=== PATIENT | male | born 1950 | race Caucasian/White ===

== ENCOUNTER 2020-01-11 13:39 | Outpatient (REF) | payer SELFPAY ==
[2020-01-13 17:47] LABS: COVID-19 RT-PCR Result Not Detected ((See Note))
== END 2020-01-11 13:59 ==
LOC: LBN 13:39
PROVIDERS: PCP Physician Assistant Medical; Visit Provider Nurse Practitioner Adult Health
DX: Z11.59 Encounter for screening for other viral diseases (principal)
CPT/HCPCS: U0003

== ENCOUNTER 2020-01-18 15:37 | Outpatient (REF) | payer SELFPAY ==
[2020-01-20 15:57] LABS: COVID-19 RT-PCR Result Not Detected ((See Note))
== END 2020-01-18 15:57 ==
LOC: LBN 15:37
PROVIDERS: PCP Physician Assistant Medical; Visit Provider Nurse Practitioner Adult Health
DX: Z11.59 Encounter for screening for other viral diseases (principal)
CPT/HCPCS: U0003

== ENCOUNTER 2020-02-17 14:18 | Outpatient (REF) | payer MEDICARE, SELFPAY ==
[2020-02-18 14:57] LABS: COVID-19 RT-PCR Result Not Detected ((See Note))
== END 2020-02-17 14:38 ==
LOC: LBN 14:18
PROVIDERS: PCP Physician Assistant Medical; Visit Provider Nurse Practitioner Adult Health
DX: Z20.828 Contact with and (suspected) exposure to other viral communicable diseases (principal)
CPT/HCPCS: U0003

== ENCOUNTER 2020-02-24 18:46 | Outpatient (REF) | payer MEDICARE, SELFPAY ==
[2020-02-27 08:52] LABS: SARS-CoV-2 RNA Not Detected (NotDetected); SARS-CoV-2 RNA Source Nasal/Nares
== END 2020-02-24 19:06 ==
LOC: LBN 18:46
PROVIDERS: PCP Physician Assistant Medical; Visit Provider Nurse Practitioner Adult Health
DX: Z11.59 Encounter for screening for other viral diseases (principal)
CPT/HCPCS: U0003

== ENCOUNTER 2020-03-04 15:13 | Outpatient (REF) | payer MEDICARE, SELFPAY | END 2020-03-04 15:33 | LOC: LBN 15:13 | PROVIDERS: PCP Physician Assistant Medical; Visit Provider Nurse Practitioner Adult Health | DX: M86.271 Subacute osteomyelitis, right ankle and foot (principal) | CPT/HCPCS: 87077; 87070; 87186; 87205 ==

== ENCOUNTER 2020-03-07 15:08 | Outpatient (REF) | payer MEDICARE, SELFPAY ==
[2020-03-09 09:05] LABS: COVID-19 RT-PCR UVMMC Result Negative (Negative)
== END 2020-03-07 15:28 ==
LOC: LBN 15:08
PROVIDERS: PCP Physician Assistant Medical; Visit Provider Nurse Practitioner Adult Health
DX: Z11.59 Encounter for screening for other viral diseases (principal)
CPT/HCPCS: U0003

== ENCOUNTER 2020-04-23 11:11 | Observation (INO) | payer OTHER, MEDICARE, SELFPAY ==
[2020-04-23] VITALS (48 sets, daily range): BP systolic 101–127; BP diastolic 44–85; PULSE 61–82; RESP 9–24; TEMP 36.3–37.3; O2SAT 89–97
--- NOTE | 2020-04-23 11:00 | RT.EKG_ITS ---
APPROVED REPORT Exam: Resting ECG Patient Location: E HR:78 bpm ECG Measurements Heart Rate 78 AXIS MD 337 P 40 QRSd 141 QRS -67 QT 418 T 52 QTc 476 Conclusion Sinus rhythm...normal P axis, V-rate 60- 99 Prolonged MD interval...MD >220, V-rate 50- 90 Left atrial enlargement...P, P'>60mS, <-0.15mV V1 Right bundle branch block...QRSd>120, terminal axis(90,270) Inferior infarct, old...Q >35mS, II III aVF
--- NOTE | 2020-04-23 11:41 | ED.GENADUL_ITS ---
Discharge Plan Disposition Patient Disposition: [facility] INPATIENT Condition: Serious Discharge Details Clinical Impression: Chest pain, Anemia Primary Care Provider: Robert Russell ED Provider: Delvis Melvin Home Meds and New Rx's Prescriptions: No Action morphine 30 MG tablet extended release 30 mg PO BID RF: 0 morphine 15 MG tablet 15 mg PO Q4H PRN PRNRF: 0 aspirin [Aspir-81] 81 MG tablet,delayed release (DR/EC) 1 tab PO DAILY RF: 0 omeprazole 20 MG capsule,delayed release(DR/EC) 1 tab PO BID RF: 0 furosemide 40 mg Tablet 40 mg PO DAILY RF: 0 cadexomer iodine 0.9 % Gel 40 g TOPICAL DAILY RF: 0 lovastatin 40 mg Tablet 40 mg PO QPM RF: 0 trazodone 100 mg Tablet 100 mg PO QHS RF: 0 gabapentin 300 mg Capsule 600 mg PO BID RF: 0 gabapentin 300 mg Capsule 300 mg PO .DAILY @ 1400 RF: 0 melatonin 3 mg Capsule 3 mg PO HS PRNRF: 0 acetaminophen 325 mg Tablet 650 mg PO QID PRNRF: 0 morphine 15 mg Capsule 7.5 mg PO Q4H PRN PRNRF: 0 glyburide 5 mg Tablet 5 mg PO BID RF: 0 metformin 1,000 mg Tablet 1,000 mg PO BID RF: 0 nitroglycerin 0.4 mg Tablet, Sublingual 0.4 mg SUBLINGUAL Q5M PRNRF: 0 polyethylene glycol 3350 17 gram/dose Powder 17 g PO DAILY PRNRF: 0 metoprolol tartrate 25 mg Tablet 25 mg PO BID RF: 0 COVID-19 vacc,mRNA(Pfizer)(PF) 30 mcg/0.3 mL Suspension For Reconstitution 0.3 ml IM ONCE RF: 0 Medical Decision Making 1145?69-year-old male with history of hypertension, diabetes, coronary artery disease status post CABG 1 year ago, 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 Patient is high risk for acute coronary syndrome. Screening ECG was reviewed and interpreted by me: Please see report, nondiagnostic, no STEMI. Will send troponin. Given sedentary lifestyle and recent orthopedic procedure, consider pulmonary embolism. Consider also aortic dissection. Plan to obtain CT of the chest. Patient is currently hemodynamically stable and chest pain-free. Patient did already receive aspirin today at rehab facility. 14:06 --initial troponin negative. Second troponin slightly elevated at 0.06 but still in indeterminate range. Patient remains chest pain-free. No chest pain since episode prior to arrival. Plan to trend troponin. I called and spoke with the hospitalist-discussed ED presentation and course, he recommends against heparin infusion at this time and will admit the patient to MedSurg floor. Bridging orders placed as requested. Care transition to Dr. Donis, hospitalist service --Patient does have anemia today with no old for comparison. Patient denies melena or bright red blood per rectum. He does not any knowledge of prior anemia. We will attempt to obtain outside hospital records from [place]. HPI General Mode of arrival: EMS . Date/Time Provider Initiated Documentation: 04/23/20 11:19 . Limitations to Documentation: no limitations . Information obtained by: EMS . HPI Narrative: 69-year-old male with history of diabetes, hypertension, CABG, CVA, residual left-sided weakness, here with chief complaint of chest pain. Pain started this morning around 10 AM and lasted approximately 1 hour. Pain was severe. Pain localized to retrosternal centrally. Patient notes pain came on suddenly after eating. Pain resolved with sublingual nitroglycerin x2. He has no associated shortness of breath. No calf pain. He is sedentary and has had recent orthopedic surgery right lower extremity complicated by graft failure. Related Data Home Medications Medication Instructions Recorded Confirmed aspirin [Aspir 81] 1 tab PO DAILY 06/19/16 04/23/20 morphine 15 mg PO Q4H PRN PRN 06/19/16 04/23/20 morphine 30 mg PO BID 06/19/16 04/23/20 omeprazole 1 tab PO BID 06/19/16 04/23/20 COVID-19 vacc,mRNA(Pfizer)(PF) 0.3 ml IM ONCE 04/23/20 04/23/20 acetaminophen 650 mg PO QID PRN 04/23/20 04/23/20 cadexomer iodine 40 g TOPICAL DAILY 04/23/20 04/23/20 furosemide 40 mg PO DAILY 04/23/20 04/23/20 gabapentin 300 mg PO .DAILY @ 1400 04/23/20 04/23/20 gabapentin 600 mg PO BID 04/23/20 04/23/20 glyburide 5 mg PO BID 04/23/20 04/23/20 lovastatin 40 mg PO QPM 04/23/20 04/23/20 melatonin 3 mg PO HS PRN 04/23/20 04/23/20 metformin 1,000 mg PO BID 04/23/20 04/23/20 metoprolol tartrate 25 mg PO BID 04/23/20 04/23/20 morphine 7.5 mg PO Q4H PRN PRN 04/23/20 04/23/20 nitroglycerin 0.4 mg SUBLINGUAL Q5M PRN 04/23/20 04/23/20 polyethylene glycol 3350 17 g PO DAILY PRN 04/23/20 04/23/20 trazodone 100 mg PO QHS 04/23/20 04/23/20 Allergies Allergy/AdvReac Type Severity Reaction Status Date / Time amitriptyline Allergy Unknown Unverified 04/23/20 11:14 simvastatin Allergy Unknown Unverified 04/23/20 11:14 General Stated Complaint: Chest Pain MARILYN: 2 Review of Systems All systems reviewed & are unremarkable except as noted in HPI and below Constitutional Constitutional: Denies fever(s) Cardiovascular Cardiovascular: Reports as per HPI Respiratory Respiratory: Reports as per HPI Gastrointestinal Gastrointestinal: Denies melena and Denies hematochezia [facility] Medical History (Updated 04/23/20 @ 14:53 by Delvis Melvin MD) Coronary artery disease CVA (cerebral vascular accident) Diabetes Hypertension Surgical History (Updated 04/23/20 @ 11:43 by Delvis Melvin MD) Hx of CABG Social History Smoking/Tobacco Use Status: Former Tobacco Use Smoking risk assessment performed?: Yes Alcohol Intake: former Substance use type: does not use Details: smoked in the no alcohol since 1989ish Do you feel safe at home: Yes Do you feel safe in your relationship?: Yes Exam Const General: cooperative and no acute distress HENMT Mouth: moist mucous membranes Eyes Conjunctivae: normal conjunctivae Sclera: normal sclerae Neck Neck: trachea midline and supple Resp Auscultation: clear to auscultation bilaterally, no rales, no rhonchi and no wheezes Cardio Rate: regular rate and not tachycardic Rhythm: regular rhythm Other: Heart sounds distant GI Palpation: soft, not firm, no guarding, no masses, not rigid and nontender Skin General skin exam: no rashes or lesions noted Neuro General: patient alert, patient awake, patient oriented x3 and tone normal Cognition: normal cognition Motor: other (4/5 strength left upper and left lower extremity compared to 5/5 rt) Sensory Exam: no sensory deficits noted Other: Left facial droop Extrem General: no calf tenderness and no edema Other: Distal right lower extremity boot intact Psych Appearance: grossly normal Mental Status: mental status grossly normal Course Vital Signs Vital signs: Vital Signs Temperature 36.6 C 04/23/20 11:10 Pulse 78 04/23/20 11:10 Respiratory Rate 18 04/23/20 11:10 Blood Pressure 114/58 L 04/23/20 11:10 Pulse Oximetry 94 04/23/20 11:10 Temperature 36.6 C 04/23/20 11:10 Temperature Source Skin 04/23/20 11:10 Pulse 78 04/23/20 11:22 Pulse 74 04/23/20 11:30 Respiratory Rate 13 04/23/20 11:36 Respiratory Effort Non-Labored 04/23/20 11:36 Respiratory Depth Normal 04/23/20 11:36 Respiratory Pattern Normal 04/23/20 11:36 Blood Pressure 114/58 L 04/23/20 11:22 Blood Pressure Mean 70 04/23/20 11:22 Blood Pressure Position Supine 04/23/20 11:10 Pulse Oximetry 94 04/23/20 11:30 Oxygen Delivery Method Room Air 04/23/20 11:10 Oxygen Flow Rate 0 04/23/20 11:10 Pain Level 0 04/23/20 11:10
[2020-04-23 11:49] LABS: Abs Immature Grans 0.01 10^3/uL (0.0-0.06); Absolute Basophil Count 0.01 10^3/uL (0.0-0.2); Absolute Eosinophil Count 0.08 10^3/uL (0.0-0.7); Absolute Lymphocyte Count 0.71 10^3/uL (1.2-3.4); Absolute Neutrophil Count 3.67 10^3/uL (1.2-6.7); Basophils % 0.2; Eosinophils % 1.7; HCT 30.1 % (40.0-50.0); HGB 8.6 g/dL (13.5-17.5); Immature Grans % 0.2; Lymphocytes % 14.9; MCHC 28.6 % (32.0-36.0); MCV 73.6 fL (80-95); MPV 9.8 fL (8.0-11.0); Monocytes % 6.3; Neutrophils % 76.7; Nucleated RBC 0 %; Platelet Count 123 10^3/uL (130-400); RBC 4.09 10^6/uL (4.36-5.78); RDW 17.9 % (11.8-14.1); RDW-SD 46.9 fL; WBC 4.78 10^3/uL (4.4-10.8)
[2020-04-23 12:03] LABS: Anisocytosis 1+; Diff Comment RBC Morph Reviewed; Hypochromasia 2+; INR 1.2 (0.9-1.1); Microcytosis 3+; PTT Activated 24.9 sec (21.0-27.5); Polychromasia Present; Prothrombin Time 11.6 sec (9.3-11.0)
[2020-04-23 12:05] LABS: ALT 25 U/L (16-63); AST 31 U/L (15-37); Alkaline Phosphatase 183 U/L (46-116); Anion Gap 9.3 mmol/L (3-11); BUN 28 mg/dL (7-18); Bilirubin, Total 0.6 mg/dL (0.2-1.0); CO2 27.7 mmol/L (21.0-32.0); CREATININE 1.22 mg/dL (0.70-1.30); Chloride 101 mmol/L (98-107); Glucose 228 mg/dL (74-106); Potassium 4.6 mmol/L (3.5-5.1); Sodium 138 mmol/L (136-145); Total Protein 7.4 g/dL (6.4-8.2); Troponin I < 0.05 ng/mL (<0.06)
--- NOTE | 2020-04-23 12:53 | DI.CT_ITS ---
EXAM: CT CHEST PE CTA CLINICAL HISTORY: retrosternal chest pain x 1hr, improved with nitro. TECHNIQUE: Imaging Protocol: CT angiography of the chest was performed using pulmonary embolus chas col. Multi planar reconstructions were performed. CONTRAST MATERIAL: Intravenous: Omnipaque 350 Contrast volume: 83 cc COMPARISON: No previous exams available for comparison FINDINGS: CHEST: There are sternotomy wires and elevated right hemidiaphragm noted. PULMONARY ARTERIES: There are no intraluminal filling defects to suggest acute pulmonary emboli. LUNGS: Mild increased markings in the right lung base are noted above the significantly elevated righ t hemidiaphragm. Also mild benign-appearing pleural based markings in the posterior basal segment of the left lower lobe. No associated pleural effusion. No pleural effusions on either side MEDIASTINUM: There is no hilar nor mediastinal adenopathy. Visualized thyroid unremarkable. CARDIAC: There is sternotomy wires. There is cardiomegaly. No pericardial effusion. No shift of th e interventricular septum.Caliber of the thoracic aorta is within normal limits. No evidence of aorti c dissection PARTIALLY VISUALIZED UPPERMOST ABDOMEN: No obvious findings OSSEOUS: There is ligamentous calcification throughout the visualized thoracic spinal column as well as in the cervical spine kyphotic deflection of the thoracis over thoracocervical junction. Correlat ion with any history of ankylosing spondylitis is recommended.. IMPRESSION: 1. No evidence of acute pulmonary emboli. No evidence of pulmonary infarction.No pleural effusions. Mild increased markings in the posterior basal segment of the left lower lobe. 2. Significantly elevated right hemidiaphragm. 3. Cardiomegaly. No pericardial effusion. No aortic dissection. No shift of the interventricular s eptum. RADIATION DOSE DELIVERED: LINK-TO-SR Total DLP DATA REPOSITORY: All CT scans at this facility are submitted to the National Radiology Data Registry (NRDR) Dose Index Registry (DIR) with the [employer] (A[employer]). RADIATION OPTIMIZATION: All CT scans at this facility use at least one of these dose optimization te chniques: automated exposure control; mA and/or kV adjustment per patient size (includes targeted exa ms where dose is matched to clinical indication); or iterative reconstruction.
[2020-04-23] MEDS: Normal Saline - Diluent 50 ML VIAL IV (12:58)
[2020-04-23] MEDS: Omnipaque 350 MG/ML 100 ML BTL 83 ML IJ (13:00)
[2020-04-23 13:54] LABS: Troponin I 0.06 ng/mL (<0.06)
[2020-04-23 15:53] LABS: Troponin I 0.09 ng/mL (<0.06)
[2020-04-23] MEDS: nitroGLYcerin 2% 1 INCH/1 GM PKT 0.5 GM TP ×2 (16:22→21:28)
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
--- NOTE | 2020-04-23 16:45 | RT.EKG_ITS ---
APPROVED REPORT Exam: Resting ECG Patient Location: I HR:68 bpm ECG Measurements Heart Rate 68 AXIS DE 334 P 24 QRSd 139 QRS -57 QT 439 T 40 QTc 469 Conclusion Sinus rhythm...normal P axis, V-rate 60- 99 Prolonged DE interval...DE >220, V-rate 50- 90 Probable left atrial enlargement...P >50mS, <-0.10mV V1 Right bundle branch block...QRSd>120, terminal axis(90,270) Inferior infarct, old...Q >35mS, II III aVF
--- NOTE | 2020-04-23 17:00 | RT.EKG_ITS ---
APPROVED REPORT Exam: Resting ECG Patient Location: I HR:86 bpm ECG Measurements Heart Rate 86 AXIS WV 197 P 78 QRSd 101 QRS -6 QT 403 T 47 QTc 482 Conclusion Sinus rhythm...normal P axis, V-rate 60- 99 Ventricular premature complex...V complex w/ short R-R interval
[2020-04-23 17:20] LABS: NT-proBNP 790 pg/mL (<300)
[2020-04-23] MEDS: Clopidogrel 300 MG TAB PO (17:57)
--- NOTE | 2020-04-23 18:23 | WOUNDCONS ---
- If Service Date Differs Date of service: 04/23/20 Time of Service: 18:24 Wound Initial Evaluation Narrative: Pt seen at bedside, agreeable to wound consult, consent obtained for photographs. Pt has large medical Hx significant for ACS, CABG, Diabetes, HTN, spine osteomyleitis in 2018 and chronic back pain. Right lateral ankle wound being followed and managed by the [facility] wound clinic, Dr. Bertha Casanova. Pt seen yesterday 04/22/2020 via tele health by the [place] [facility]ound team; [facility]. Since wound has complicated Hx including partial resection of fibula, wound vac, debridments, and placements of restrata grafts w/failure it is this scribes recommendation to continue to follow the [facility] treatment plan at this time. Documentation shows improvement of wound recently. Right 5th toe oozing bloody discharge with loose toenail. [facility]&R nursing staff reports current orders are cleanse to with betadine, apply cadexomer iodine to toe with dry sterile dressing as a covering. Change daily. Pt reports pain to toe when touched, denies pain at rest. Due to loose toenail recommend podiatry consult @ this time to assess if nail needs to be removed or left in place. - Wound Right Lateral Ankle Wound Type: Other (original origin of wound unknown to this scribe) Wound General Appearance: Healing Well Wound Bed Greatest Portion: Red (Granulation) Wound Length: 5.3 cm Wound Width: 3.1 cm Wound Depth: 0.1 cm Wound Drainage Amount: Minimal Wound Drainage Odor: None/Absent Wound Drainage Description: Sero Sanguineous - Circulation, Sensation, Motion Edema Degree: Trace Peripheral Pulse Strength: Weak Capillary Refill: Less than 3 seconds Skin Temperature: Warm Skin Color: Normal - ERICH Comment:: not obtained @ this time d/t wound location - Pain Pain Level: 2 Pain Scale Used: Adult - Recomendation Recomendation:: Recommendations: Right Lateral Ankle Wound- cleanse wound with NS, apply medi honey to wound, cover with adaptic, cover with 4x4 gauze, wrap with kerlix and MAGEN, tape in place. Change daily and PRN. Right 5th toe- cleanse with NS. Apply cadexomer iodine to toe, cover with dry sterile dressing. Change daily and PRN. Recommend podiatry consult to assess if 5th toenail needs to be removed.
[2020-04-23] MEDS: Metoprolol 25 MG TAB PO (20:03)
[2020-04-23] MEDS: Gabapentin 300 MG CAP 600 MG PO (20:03)
[2020-04-23] MEDS: Lovastatin 40 MG TAB PO (20:03)
[2020-04-23] MEDS: Melatonin 3 MG TAB PO (20:03)
[2020-04-23] MEDS: Omeprazole 20 MG CAPCR PO (20:04)
[2020-04-23 20:17] LABS: Troponin I 0.11 ng/mL (<0.06)
[2020-04-23] MEDS: traZODone 100 MG TAB PO (21:27)
[2020-04-23] MEDS: Insulin Glargine 300 UNITS/3 ML PEN 10 UNITS SC (21:29)
[2020-04-23 22:36] LABS: Troponin I 0.11 ng/mL (<0.06)
[2020-04-24 03:42] VITALS: BP 101/54; PULSE 66; RESP 18; TEMP 36.6; O2SAT 96
[2020-04-24 07:03] LABS: Absolute Basophil Count 0.02 10^3/uL (0.0-0.2); Absolute Eosinophil Count 0.09 10^3/uL (0.0-0.7); Absolute Lymphocyte Count 1.03 10^3/uL (1.2-3.4); Absolute Neutrophil Count 2.45 10^3/uL (1.2-6.7); Basophils % 0.5; Eosinophils % 2.3; HCT 27.6 % (40.0-50.0); Lymphocytes % 25.8; MCH 20.6 pg (27.0-33.0); MCV 71.1 fL (80-95); MPV 10.1 fL (8.0-11.0); Neutrophils % 61.4; Nucleated RBC 0 %; Platelet Count 118 10^3/uL (130-400); RBC 3.88 10^6/uL (4.36-5.78); RDW 17.6 % (11.8-14.1); RDW-SD 44.6 fL; WBC 3.99 10^3/uL (4.4-10.8)
[2020-04-24 07:19] LABS: Anion Gap 6.3 mmol/L (3-11); BUN 30 mg/dL (7-18); CO2 31.7 mmol/L (21.0-32.0); CREATININE 0.98 mg/dL (0.70-1.30); Chloride 102 mmol/L (98-107); Glucose 87 mg/dL (74-106); Iron 20 ug/dL (65-175); Potassium 3.9 mmol/L (3.5-5.1); Sodium 140 mmol/L (136-145); Total Iron Binding Capacity 422 ug/dL (250-450); Transferrin Sat 5 % (20-55)
[2020-04-24 07:22] LABS: Troponin I 0.08 ng/mL (<0.06)
[2020-04-24 07:26] LABS: Ferritin 21 ng/mL (26-388)
[2020-04-24 07:39] VITALS: BP 113/64; PULSE 62; RESP 19; TEMP 36; O2SAT 95
[2020-04-24] MEDS: Omeprazole 20 MG CAPCR PO (07:51)
[2020-04-24] MEDS: Furosemide 40 MG TAB PO (07:51)
[2020-04-24] MEDS: Aspirin E.C. 81 MG TABEC PO (07:51)
[2020-04-24] MEDS: Clopidogrel 75 MG TAB PO (07:51)
[2020-04-24] MEDS: Metoprolol 25 MG TAB PO (07:51)
[2020-04-24] MEDS: Gabapentin 300 MG CAP 600 MG PO (07:51)
[2020-04-24] MEDS: Insulin Aspart 300 UNITS/3 ML PEN SC ×3 (08:04→12:03)
[2020-04-24 08:37] LABS: COVID-19 RT-PCR UVMMC Result Negative (Negative)
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
[2020-04-24] MEDS: Isosorbide Mononitrate 30 MG TABCR PO (10:03)
[2020-04-24 10:29] LABS: Calculated LDL 46 mg/dL (<100); Cholesterol 102 mg/dL (<200); HDL Cholesterol 33 mg/dL (40-60); Triglyceride 119 mg/dL (<150)
[2020-04-24 10:54] VITALS: BP 101/56; PULSE 62; RESP 19; TEMP 36.7; O2SAT 96
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
--- NOTE | 2020-04-24 13:19 | PDOC.CMDIS ---
LACE Index Scoring Tool - Questions: Length of Stay (in days): 1 Acuity (Admit via E.D.?): Yes Comorbidities: Cerebrovascular Disease, Diabetes w/o Complication, Congestive Heart Failure E.D. Visits: 1 - Answers: Total Score: 10 Risk of Readmission: High Risk Care Management Discharge Reason for Hospitalization: Chest pain. Discharge Plan: Osmar is discharged to [facility]. 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 He is being driven to [facility] by [facility] wheelchair van coordinated by CM. Patient/Family Education Needs: Discharge instructions, limitations, follow up plan of care, including Ask Me Three and self management. Services Needed at Discharge: Prison Facility, Transportation ([facility] wheelchair van)
== END 2020-04-24 13:31 | disposition skilled nursing facility (03) ==
LOC: ER 14:30 → MS 15:36
PROVIDERS: Family Medicine; Admitting Provider Internal Medicine; Emergency Provider Student in an Organized Health Care Education/Training Program; PCP Physician Assistant Medical; Visit Provider Internal Medicine
DX: I25.118 Atherosclerotic heart disease of native coronary artery with other forms of angina pectoris (principal); I50.30 Unspecified diastolic (congestive) heart failure; I11.0 Hypertensive heart disease with heart failure; I25.2 Old myocardial infarction; Z95.1 Presence of aortocoronary bypass graft; Z86.711 Personal history of pulmonary embolism; I69.354 Hemiplegia and hemiparesis following cerebral infarction affecting left non-dominant side; L97.319 Non-pressure chronic ulcer of right ankle with unspecified severity; E78.5 Hyperlipidemia, unspecified; E66.9 Obesity, unspecified; I45.2 Bifascicular block; G89.29 Other chronic pain; M54.9 Dorsalgia, unspecified; D50.9 Iron deficiency anemia, unspecified; R91.1 Solitary pulmonary nodule; Q21.1 Atrial septal defect
CPT/HCPCS: 36415; 71275; 80048; 80053; 80061; 87081; 93005; 99220; 99239; 99285; U0003; 82728; 83540; 83550; 83880; 84484; 85025; 85610; 85730; 93010; 99217; G0378; J3490

== ENCOUNTER 2020-04-28 18:27 | Outpatient (REF) | payer MEDICARE, SELFPAY ==
[2020-04-29 16:37] LABS: COVID-19 RT-PCR Result Not Detected ((See Note))
== END 2020-04-28 18:47 ==
LOC: LBN 18:27
PROVIDERS: PCP Physician Assistant Medical; Visit Provider Nurse Practitioner Adult Health
DX: Z11.59 Encounter for screening for other viral diseases (principal)
CPT/HCPCS: U0003

== ENCOUNTER 2020-05-03 16:11 | Outpatient (REF) | payer MEDICARE, SELFPAY ==
[2020-05-05 15:27] LABS: COVID-19 RT-PCR Result Not Detected ((See Note))
== END 2020-05-03 16:31 ==
LOC: LBN 16:11
PROVIDERS: PCP Physician Assistant Medical; Visit Provider Nurse Practitioner Adult Health
DX: Z11.59 Encounter for screening for other viral diseases (principal)
CPT/HCPCS: U0003

== ENCOUNTER 2020-05-18 20:04 | Outpatient (REF) | payer MEDICARE, SELFPAY ==
[2020-05-18 20:56] LABS: Abs Immature Grans 0.01 10^3/uL (0.0-0.06); Absolute Basophil Count 0.02 10^3/uL (0.0-0.2); Absolute Eosinophil Count 0.14 10^3/uL (0.0-0.7); Absolute Lymphocyte Count 1.01 10^3/uL (1.2-3.4); Absolute Monocyte Count 0.54 10^3/uL (0.1-0.8); Absolute Neutrophil Count 3.06 10^3/uL (1.2-6.7); Basophils % 0.4; Eosinophils % 2.9; HCT 23.7 % (40.0-50.0); Immature Grans % 0.2; Lymphocytes % 21.1; MCH 20.5 pg (27.0-33.0); MCHC 29.1 % (32.0-36.0); MCV 70.5 fL (80-95); MPV 10.8 fL (8.0-11.0); Monocytes % 11.3; Neutrophils % 64.1; Nucleated RBC 0 %; Platelet Count 111 10^3/uL (130-400); RBC 3.36 10^6/uL (4.36-5.78); RDW 16.8 % (11.8-14.1); RDW-SD 42.9 fL; WBC 4.78 10^3/uL (4.4-10.8)
[2020-05-18 21:05] LABS: Anion Gap 6.9 mmol/L (3-11); BUN 30 mg/dL (7-18); CO2 27.1 mmol/L (21.0-32.0); CREATININE 1.21 mg/dL (0.70-1.30); Calcium 8.6 mg/dL (8.5-10.1); Chloride 99 mmol/L (98-107); Estimated GFR 59.46 (mL/min/1.73m2); Glucose 159 mg/dL (74-106); Potassium 4.5 mmol/L (3.5-5.1); Sodium 133 mmol/L (136-145)
[2020-05-18 21:30] LABS: HGB 6.9 g/dL (13.5-17.5)
[2020-05-18 21:31] LABS: Diff Comment RBC Morph Reviewed; Hypochromasia 1+; Microcytosis 3+
== END 2020-05-18 20:24 ==
LOC: LBN 20:04
PROVIDERS: PCP Physician Assistant Medical; Visit Provider Nurse Practitioner Adult Health
DX: E11.621 Type 2 diabetes mellitus with foot ulcer (principal); M86.271 Subacute osteomyelitis, right ankle and foot; R27.8 Other lack of coordination
CPT/HCPCS: 80048; 85025

== ENCOUNTER 2020-05-19 18:32 | Emergency (ER) | payer OTHER, MEDICARE, SELFPAY ==
[2020-05-19] VITALS (12 sets, daily range): BP systolic 114–134; BP diastolic 52–64; PULSE 89–92; RESP 16–20; TEMP 36.9; O2SAT 90–96
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
[2020-05-19 19:29] LABS: Abs Immature Grans 0.01 10^3/uL (0.0-0.06); Absolute Basophil Count 0.03 10^3/uL (0.0-0.2); Absolute Eosinophil Count 0.12 10^3/uL (0.0-0.7); Absolute Lymphocyte Count 1.03 10^3/uL (1.2-3.4); Absolute Monocyte Count 0.56 10^3/uL (0.1-0.8); Absolute Neutrophil Count 3.48 10^3/uL (1.2-6.7); Basophils % 0.6; Eosinophils % 2.3; HCT 26.9 % (40.0-50.0); HGB 7.6 g/dL (13.5-17.5); Immature Grans % 0.2; Lymphocytes % 19.7; MCH 19.9 pg (27.0-33.0); MCHC 28.3 % (32.0-36.0); MCV 70.4 fL (80-95); MPV 10.5 fL (8.0-11.0); Monocytes % 10.7; Neutrophils % 66.5; Nucleated RBC 0 %; Platelet Count 138 10^3/uL (130-400); RBC 3.82 10^6/uL (4.36-5.78); RDW 16.7 % (11.8-14.1); RDW-SD 42.7 fL; WBC 5.23 10^3/uL (4.4-10.8)
[2020-05-19 19:44] LABS: Anion Gap 7.9 mmol/L (3-11); BUN 31 mg/dL (7-18); CO2 27.1 mmol/L (21.0-32.0); CREATININE 1.31 mg/dL (0.70-1.30); Chloride 97 mmol/L (98-107); Estimated GFR 54.25 (mL/min/1.73m2); Glucose 164 mg/dL (74-106); Potassium 4.4 mmol/L (3.5-5.1); Sodium 132 mmol/L (136-145)
[2020-05-19 20:11] LABS: Hypochromasia 1+
[2020-05-19 20:12] LABS: Basophilic Stippling Present; Microcytosis 1+
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
== END 2020-05-19 20:38 ==
PROVIDERS: Emergency Provider Nurse Practitioner Acute Care; PCP Physician Assistant Medical
DX: D50.8 Other iron deficiency anemias (principal); E11.9 Type 2 diabetes mellitus without complications; Z79.84 Long term (current) use of oral hypoglycemic drugs; I10 Essential (primary) hypertension
CPT/HCPCS: 36415; 80048; 86850; 86900; 86901; 99283; 85025

== ENCOUNTER 2020-05-24 17:28 | Outpatient (REF) | payer MEDICARE, SELFPAY ==
[2020-05-26 14:48] LABS: COVID-19 RT-PCR Result Not Detected ((See Note))
== END 2020-05-24 17:48 ==
LOC: LBN 17:28
PROVIDERS: PCP Physician Assistant Medical; Visit Provider Nurse Practitioner Adult Health
DX: Z11.52 Encounter for screening for COVID-19 (principal)
CPT/HCPCS: U0003

== ENCOUNTER 2020-05-29 16:10 | Outpatient (REF) | payer MEDICARE, SELFPAY | END 2020-05-29 16:11 | disposition home or self-care (01) | LOC: LBN 16:10 | PROVIDERS: PCP Physician Assistant Medical; Visit Provider Nurse Practitioner Adult Health | DX: Z20.822 Contact with and (suspected) exposure to COVID-19 (principal) | CPT/HCPCS: U0003 ==

== ENCOUNTER 2020-06-18 11:10 | Inpatient (IN) | payer MEDICARE, OTHER, SELFPAY ==
[2020-06-18] VITALS (137 sets, daily range): BP systolic 88–119; BP diastolic 43–66; PULSE 65–88; RESP 1–30; TEMP 36.3–36.9; O2SAT 83–100
--- NOTE | 2020-06-18 11:15 | RT.EKG_ITS ---
APPROVED REPORT Exam: Resting ECG Patient Location: E HR:83 bpm ECG Measurements Heart Rate 83 AXIS NV 235 P 233 QRSd 137 QRS -86 QT 439 T 57 QTc 516 Conclusion Sinus or ectopic atrial rhythm...P axis (-45,135) Prolonged NV interval...NV >220, V-rate 50- 90 Left atrial enlargement...P, P'>60mS, <-0.15mV V1 Right bundle branch block...QRSd>120, terminal axis(90,270) Inferior infarct, old...Q >35mS, II III aVF
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
[2020-06-18 12:28] LABS: Lactate 3.5 mmol/L (0.6-1.4)
[2020-06-18 12:49] LABS: Abs Immature Grans 0.02 10^3/uL (0.0-0.06); Absolute Basophil Count 0.02 10^3/uL (0.0-0.2); Absolute Eosinophil Count 0.05 10^3/uL (0.0-0.7); Absolute Monocyte Count 0.35 10^3/uL (0.1-0.8); Absolute Neutrophil Count 3.43 10^3/uL (1.2-6.7); Basophils % 0.4; Eosinophils % 1.1; HCT 23.6 % (40.0-50.0); Immature Grans % 0.4; Lymphocytes % 17.1; MCH 18.4 pg (27.0-33.0); MCV 65.7 fL (80-95); MPV 10.4 fL (8.0-11.0); Monocytes % 7.5; Neutrophils % 73.5; Nucleated RBC 0 %; Platelet Count 123 10^3/uL (130-400); RBC 3.59 10^6/uL (4.36-5.78); RDW 16.6 % (11.8-14.1); RDW-SD 38.6 fL; WBC 4.67 10^3/uL (4.4-10.8)
[2020-06-18] MEDS: Lactated Ringers 1,000 ML 125 ML IV (12:50)
[2020-06-18 12:52] LABS: HGB 6.6 g/dL (13.5-17.5)
[2020-06-18 12:54] LABS: ALT 18 U/L (16-63); AST 34 U/L (15-37); Albumin 3.2 g/dL (3.4-5.0); Alkaline Phosphatase 144 U/L (46-116); Anion Gap 9.9 mmol/L (3-11); BUN 39 mg/dL (7-18); Bilirubin, Total 0.4 mg/dL (0.2-1.0); CO2 28.1 mmol/L (21.0-32.0); Calcium 8.8 mg/dL (8.5-10.1); Chloride 99 mmol/L (98-107); Glucose 238 mg/dL (74-106); Lipase 102 U/L (73-393); Potassium 4.3 mmol/L (3.5-5.1); Sodium 137 mmol/L (136-145); Total Protein 7.7 g/dL (6.4-8.2)
[2020-06-18 13:05] LABS: Bilirubin Negative (Negative); Blood Small (Negative); Clarity Clear (Clear); Glucose Negative (Negative); Ketones Negative (Negative); Leukocyte Esterase Negative (Negative); Nitrite Negative (Negative); Urobilinogen 0.2 EU/dL (Up TO 0.2); pH 6.5 (5-8)
[2020-06-18 13:13] LABS: Diff Comment Diff Reviewed
[2020-06-18 13:14] LABS: Hypochromasia 3+; Microcytosis 2+; Poikilocytes 2+; Polychromasia Present
[2020-06-18 13:18] LABS: Bacteria Rare HPF (Negative); C & S Indicated? No; Casts Negative LPF (Negative); Crystals Negative HPF (Negative); Epithelial Cells Rare HPF (Negative); Mucus Negative (Negative); WBC 0-2 HPF (0-5)
--- NOTE | 2020-06-18 15:41 | DI.CT_ITS ---
EXAM: CT ABDOMEN PELVIS W CLINICAL HISTORY: diffuse abdominal pain 3 days. TECHNIQUE: Imaging Protocol: Axial computed tomography images with coronal and sagittal reformatted images were created and reviewed CONTRAST MATERIAL: Intravenous: Omnipaque 100cc Oral: None COMPARISON: CT CT CHEST PE CTA from 04/23/2020 FINDINGS: VISUALIZED LUNG BASES: Small noncalcified nodule on the right side at the junction of the right upper and right middle lobes noted which probably a pseudo nodule at the pleural reflection measuring 6 mi llimeters. There is mild infiltrate again noted in the right lung base posterior basal segment right lower lobe in this patient who as an elevated right hemidiaphragm, also unchanged. Unchanged benign -appearing increased markings are noted in the posterior basal segment of the left lower lobe. No pl eural effusions on either side ABDOMEN: Elevated right hemidiaphragm again noted. Sternotomy wires. LIVER: Hepatic steatosis again noted hand there appears to be recanalization of the umbilical vein. No ominous focal hepatic lesions evident GALLBLADDER/BILIARY: The gallbladder surgically absent. CBD diameter upper normal. PANCREAS: The pancreas is atrophic. However, there is a cystic mass in the pancreatic body measuring 1.3 by 0.9 cm. Either cyst or pancreatic cystic neoplasm. SPLEEN: Spleen size is upper normal. No intrasplenic lesions. Splenic and portal veins are patent. ADRENALS: There are no significant adrenal masses. KIDNEYS:No cysts evident. No solid renal masses. No calculi nor hydronephrosis.. ABDOMINAL AORTA: Abdominal aorta is not enlarged. LYMPH NODES:There is no retroperitineal nor paraaortic adenopathy. Some streaking in the central mes entery is noted. ABDOMINAL WALL/GI: No evidence of significant anterior abdominal wall hernia. No bowel obstruction. PELVIS: GI: No evidence of appendicitis.No evidence of sigmoid diverticulitis. LYMPH NODES: There is no intrapelvic nor inguinal adenopathy. REPRODUCTIVE: Prostate not enlarged URINARY BLADDER: Some thickening of the urinary bladder wall is noted. There is also a small Hutch d iverticulum on the right side of the urinary bladder which measures 1.7 x 1.6 cm. OSSEOUS: No significant osseous lesions. No fractures evident. IMPRESSION: 1. Elevated right hemidiaphragm again noted, as well as some increased markings in the lung bases, un changed from the previous study listed above. 2. Gallbladder is again noted be surgically absent. CBD diameter is upper normal. 3. There is a 13 x 9 millimeters cystic mass in the pancreatic body which may represent an intra panc reatic cystic neoplasm. Requires appropriate follow-up. 4. There is nonspecific streaking in the central mesentery as well as below the pancreatic tail. Pos sible element of pancreatitis. Correlation with appropriate blood work recommended. Right-sided Hutch diverticulum in the bladder measuring 17 x 16 millimeters. Also mild thickening of the bladder wall. RADIATION DOSE DELIVERED: 1,715.78mGy.cm Total DLP DATA REPOSITORY: All CT scans at this facility are submitted to the National Radiology Data Registry (NRDR) Dose Index Registry (DIR) with the [employer] [place] [employer] ([employer]). RADIATION OPTIMIZATION: All CT scans at this facility use at least one of these dose optimization te chniques: automated exposure control; mA and/or kV adjustment per patient size (includes targeted exa ms where dose is matched to clinical indication); or iterative reconstruction.
[2020-06-18] MEDS: Omnipaque 350 MG/ML 100 ML BTL IJ (15:46)
[2020-06-18] MEDS: Lactated Ringers 250 ML 1000 ML IV (16:13)
[2020-06-18 16:52] LABS: Lactate 4.8 mmol/L (0.6-1.4)
[2020-06-18] MEDS: Pantoprazole 40 MG VIAL 80 MG IVP (17:40)
[2020-06-18 18:01] LABS: HCT 23.3 % (40.0-50.0); MCH 18.6 pg (27.0-33.0); MCHC 27.9 % (32.0-36.0); MCV 66.6 fL (80-95); MPV 10.5 fL (8.0-11.0); Platelet Count 129 10^3/uL (130-400); RDW 16.5 % (11.8-14.1); RDW-SD 39.3 fL; WBC 5.23 10^3/uL (4.4-10.8)
[2020-06-18 18:10] LABS: HGB 6.5 g/dL (13.5-17.5)
[2020-06-18 18:25] LABS: INR 1.2 (0.9-1.1); Prothrombin Time 12.4 sec (9.3-11.0)
[2020-06-18 19:17] LABS: Troponin I 0.17 ng/mL (<0.06)
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
[2020-06-18 19:33] LABS: Iron 13 ug/dL (65-175); Total Iron Binding Capacity 499 ug/dL (250-450); Transferrin Sat 3 % (20-55)
[2020-06-18] MEDS: Normal Saline 1,000 ML 100 ML IV (19:39)
[2020-06-18] MEDS: PANTOPRAZOLE 80 MG in Normal Saline 100 ML 10 MG IV (19:39)
[2020-06-18 19:50] LABS: Folate 7.8 ng/mL (8.6-20.0); TSH 3.25 uIU/mL (0.36-3.74)
[2020-06-18 20:37] LABS: Anion Gap 8.7 mmol/L (3-11); BUN 30 mg/dL (7-18); CO2 25.3 mmol/L (21.0-32.0); CREATININE 0.8 mg/dL (0.70-1.30); Calcium 7.2 mg/dL (8.5-10.1); Chloride 109 mmol/L (98-107); Glucose 64 mg/dL (74-106); Sodium 143 mmol/L (136-145)
[2020-06-18 20:38] LABS: Lactate 2.8 mmol/L (0.6-1.4)
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
[2020-06-18 20:49] LABS: Troponin I 0.14 ng/mL (<0.06)
[2020-06-18 21:14] LABS: COVID-19 PCR Negative (Negative)
[2020-06-18 21:14] LABS: C-Reactive Protein 0.11 mg/dL (0.0-0.3)
[2020-06-18] MEDS: Normal Saline Flush 10 ML SYR IVP (21:42)
[2020-06-18 21:45] LABS: NT-proBNP 1137 pg/mL (<300)
[2020-06-18 21:57] LABS: Vitamin B12 463 pg/mL (193-986)
[2020-06-18] MEDS: Lidocaine 2% Jelly 6 ML SYR (21:57)
[2020-06-18] MEDS: traZODone 50 MG TAB 100 MG PO (22:21)
[2020-06-18] MEDS: Gabapentin 300 MG CAP 600 MG PO (22:21)
[2020-06-18] MEDS: Melatonin 3 MG TAB PO (22:21)
[2020-06-18] MEDS: Folic Acid 1 MG TAB PO (23:16)
[2020-06-18] MEDS: POTASSIUM CHLORIDE 20 MEQ/100 ML BAG 50 MEQ IVPB (23:16)
[2020-06-19] VITALS (204 sets, daily range): BP systolic 84–135; BP diastolic 29–66; PULSE 65–96; RESP 6–42; TEMP 36.1–36.7; O2SAT 84–100
--- NOTE | 2020-06-19 | DI.CT_ITS ---
EXAM: CT CHEST PE CTA CLINICAL HISTORY: Questionable pulmonary embolism on CT abd/pelvis. TECHNIQUE: Imaging Protocol: Axial CT angiography was performed with multi-slice acquisition and mu lti-planar and/or 3D reconstructions. CONTRAST MATERIAL: Intravenous: Omnipaque 350 Contrast volume:100 mL COMPARISON: CT CT ABDOMEN PELVIS W from 06/18/2020 FINDINGS: Tracheobronchial tree: Patent where visualized. Pulmonary parenchyma: There are infiltrates seen in the lower lobes bilaterally. This may be due to atelectasis or scarring. There is elevation of the right hemidiaphragm. This is unchanged. No arch itectural distortion. Pulmonary Arteries: There is a filling defect in a segmental branch of the pulmonary arteries to the left lower lobe. Mediastinum and Vivienne: No dominant adenopathy or fluid collection. Visualized thyroid gland: Unremarkable. Pleura: No effusion or pneumothorax. Heart: Mild cardiomegaly. Marked coronary artery calcification and/or coronary artery stents. No pe ricardial effusion. No evidence of right heart strain. Aorta: Thoracic aorta non-dilated. Atherosclerosis. No evidence of dissection. Upper abdomen: Status post cholecystectomy. Soft tissues: Bilateral gynecomastia. Bones: Sternal wires are in place. 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 IMPRESSION: 1. Pulmonary embolism in a segmental branch of the left lower lobe. 2. Scarring versus atelectasis in the lower lobes right greater than left. 3. Chronic elevation of the right hemidiaphragm. RADIATION DOSE DELIVERED: 405.81mGy.cm Total DLP DATA REPOSITORY: All CT scans at this facility are submitted to the National Radiology Data Registry (NRDR) Dose Index Registry (DIR) with the [employer] (ACR). RADIATION OPTIMIZATION: All CT scans at this facility use at least one of these dose optimization te chniques: automated exposure control; mA and/or kV adjustment per patient size (includes targeted exa ms where dose is matched to clinical indication); or iterative reconstruction.
--- NOTE | 2020-06-19 | DI.US_ITS ---
EXAM: US ABDOMEN CLINICAL HISTORY: cystic pancreatic mass TECHNIQUE: Ultrasound abdomen performed using standard protocol. COMPARISON: CT CT ABDOMEN PELVIS W from 06/18/[address] ABDOMEN PELVIS W from 06/18/2020 FINDINGS: The exam is limited by patient condition and large quantity obscuring bowel. The pancreas was not we ll seen. No cyst is identified. The patient is status post cholecystectomy. The common bile duct m easures 7 millimeters. No common duct stones are visit visualized. Liver echotexture is heterogeneo us. Small amount of fluid is seen medial to the liver. The portal vein shows hepatopetal flow. The aorta is normal in diameter. The spleen is enlarged at 15.5 cm in length. The kidneys are not well seen. There is gross evidence of hydronephrosis. IMPRESSION: Splenomegaly and mildly cirrhotic appearing liver. Small lesion in the pancreas is not visualized by ultrasound. DATA REPOSITORY:
--- NOTE | 2020-06-19 | DI.US_ITS ---
APPROVED REPORT EXAM: Comprehensive 2D, Doppler, and color-flow Echocardiogram Patient Location: In-Patient Room/Bed: [id number] Drafter (Cad) Electronic: Stephanie De Dios RDCS (AE) Indications: CHF, Surgery Other Information Study Quality: Fair. Technically limited study due to inability to position patient, body habitus. Conclusion Normal left ventricular wall thickness and chamber size. Estimated ejection fraction is 60%. There are no segmental wall motion abnormalities The right ventricle is not well visualized Both atria are normal in size. 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 The left ventricular systolic function is normal. The left ventric ular ejection fraction is within the normal range. There is normal left ventricular wall thickness. T here is normal LV segmental wall motion. There is no ventricular septal defect visualized. LVEF is 60 %. Right Ventricle Right ventricle is not well visualized. Right ventricular systolic function could not be assessed. Th e RVSP is 30.22 mmHg. Atria The left atrium size is normal. The right atrium size is normal. Atrial septal aneurysm is present. Aortic Valve The Aortic valve is sclerotic. Aortic valve is probably trileaflet. No hemodynamically significant va lvular aortic stenosis. No aortic regurgitation is present. Mitral Valve Thickened mitral leaflets No evidence of mitral valve stenosis. Mild mitral regurgitation. Tricuspid Valve The tricuspid valve is normal in structure. There is no tricuspid valve stenosis. Trace tricuspid reg urgitation. Pulmonic Valve Pulmonic valve is not well visualized. There is no pulmonic valvular stenosis. There is no pulmonic v alvular regurgitation. Great Vessels The aortic root is normal in size. Ascending aorta is not well visualized. Aortic arch is not well vi sualized. The IVC collapses <50% with normal inspiration. Pericardium There is no pericardial effusion. 2D Dimensions IVSD d PLAX 0.94 cm M: 0.6-1.2 LV Vol A2C d MOD 111.4 mL LVPW d PLAX 1.02 cm M: 0.6 - 1.2 LV Vol A4C d MOD 109.0 mL LVID d PLAX 4.54 cm M: 4.2 - 5.8 LA vol/ BSA A2C s A-L 18.8 mL/m2 LVDs 3.40 cm M: 2.5 - 4.0 LA Area A2C s MOD 15.74 cm2 Ao Root d 3.64 cm M: 3.1 - 3.7 LV EF A4C MOD 54.4 % LV EF Teichholz 48.0 % LV EF A2C MOD 50.3 % LVEF (Tay's) 52.32 % M: 52 - 72 LV EF Biplane MOD 52.3 % LV Volume 81.97 mL M: 62 - 150 SV 58.91 mL LV Volume Index 37.42 mL/m2 M: 34 - 74 SV Index 26.87 mL/m2 LV Vol Biplane MOD 112.6 mL FS 24.05 % M-Mode TAPSE 1.59 cm (M/F) >1.7 LV Diastology MV E Vmax 1.81 (0.4-1.3 m/s) Aortic Valve LVOT Area 4.02 cm2 AoV Area Vmax 1.54 cm2 LVOT Vmax 0.67 m/s AoV Area/ BSA (Vmax) 0.70 cm2/m2 LVOT Mean Rob. 0.53 m/s RUDY Mean Rob. 1.69 cm2 LVOT Peak Grad 1.8 mmHg RUDY Mean Rob. Index 0.77 cm2/m2 LVOT Mean Grad 1.2 mmHg LVOT VTI 0.153 m LVOT Diam s 2.25 cm AoV Vmax 1.76 m/s Velocity Ratio 0.38 AoV Mean Rob. 1.25 m/s AoV Peak Grad 12.5 mmHg LVOT SV 61.43 mL AoV Mean Grad 7.0 mmHg AoV VTI 0.343 m AoV Area VTI 1.79 cm2 AoV Area/ BSA (VTI) 0.82 cm/m2 Mitral Valve MV DT 163 (160-240 msec) MV PHT 47 msec MV Area PHT 4.65 cm2 Pulmonary Valve PV Vmax 1.12 (0.5-1.5 m/s) RVOT Peak Gr. 4.57 mmHg PV Peak Grad 5.1 mmHg RVOT Mean Gr. 2.25 mmHg PV Mean Grad 2.7 mmHg RVOT VTI 0.188 m PV VTI 0.223 m RVOT Vmax 1.07 m/s Tricuspid Valve TR Peak Grad 22.2 mmHg TR Vmax 2.36 m/s RA Pressure 8.00 mmHg RVSP (TR) 30.2 mmHg
[2020-06-19 00:26] LABS: Lactate 1.5 mmol/L (0.6-1.4)
[2020-06-19 00:29] LABS: HCT 21.6 % (40.0-50.0)
[2020-06-19] MEDS: Normal Saline Flush 10 ML SYR IVP ×3 (00:29→18:19)
[2020-06-19 00:37] LABS: HGB 6.2 g/dL (13.5-17.5)
[2020-06-19 00:45] LABS: Troponin I 0.16 ng/mL (<0.06)
[2020-06-19] MEDS: POTASSIUM CHLORIDE 20 MEQ/100 ML BAG 50 MEQ IVPB (01:00)
[2020-06-19 01:04] LABS: Magnesium 1.5 mg/dL (1.8-2.4)
[2020-06-19 01:22] LABS: PTT Activated 22.6 sec (21.0-27.5)
[2020-06-19] MEDS: MAGNESIUM SULFATE 4 GM/100 ML BAG IVPB (02:33)
[2020-06-19] MEDS: PANTOPRAZOLE 80 MG in Normal Saline 100 ML 10 MG IV ×2 (05:24→15:55)
[2020-06-19 06:24] LABS: Lactate 1.2 mmol/L (0.6-1.4)
[2020-06-19 06:30] LABS: Abs Immature Grans 0.02 10^3/uL (0.0-0.06); Absolute Basophil Count 0.03 10^3/uL (0.0-0.2); Absolute Eosinophil Count 0.15 10^3/uL (0.0-0.7); Absolute Lymphocyte Count 0.93 10^3/uL (1.2-3.4); Absolute Monocyte Count 0.59 10^3/uL (0.1-0.8); Absolute Neutrophil Count 3.25 10^3/uL (1.2-6.7); Basophils % 0.6; HCT 27.9 % (40.0-50.0); HGB 8.1 g/dL (13.5-17.5); Immature Grans % 0.4; Lymphocytes % 18.7; MCH 20.6 pg (27.0-33.0); MPV 10.1 fL (8.0-11.0); Monocytes % 11.9; Neutrophils % 65.4; Nucleated RBC 0 %; RBC 3.93 10^6/uL (4.36-5.78); RDW 19.6 % (11.8-14.1); RDW-SD 49.5 fL; WBC 4.97 10^3/uL (4.4-10.8)
[2020-06-19 06:49] LABS: ALT 17 U/L (16-63); AST 23 U/L (15-37); Albumin 2.8 g/dL (3.4-5.0); Alkaline Phosphatase 111 U/L (46-116); Anion Gap 2.5 mmol/L (3-11); BUN 32 mg/dL (7-18); Bilirubin, Total 0.7 mg/dL (0.2-1.0); CO2 31.5 mmol/L (21.0-32.0); CREATININE 0.9 mg/dL (0.70-1.30); Calcium 8.5 mg/dL (8.5-10.1); Chloride 105 mmol/L (98-107); Glucose 78 mg/dL (74-106); Potassium 4.4 mmol/L (3.5-5.1); Sodium 139 mmol/L (136-145); Total Protein 6.5 g/dL (6.4-8.2)
[2020-06-19 07:18] LABS: Anisocytosis 2+; Diff Comment Diff Reviewed; Platelet Count 91 10^3/uL (130-400)
[2020-06-19 07:19] LABS: Hypochromasia 3+; Microcytosis 3+; Poikilocytes 2+; Polychromasia Present
[2020-06-19] MEDS: Metoprolol 25 MG TAB PO ×2 (07:33→20:52)
[2020-06-19 07:42] LABS: Magnesium 2.4 mg/dL (1.8-2.4)
[2020-06-19 07:45] LABS: Troponin I 0.12 ng/mL (<0.06)
[2020-06-19 08:38] LABS: NT-proBNP 1297 pg/mL (<300)
[2020-06-19] MEDS: IRON SUCROSE COMPLEX 300 MG in Normal Saline 250 ML 167 MG IVPB (08:46)
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
--- NOTE | 2020-06-19 10:01 | PHA.REVIEW ---
Pharmacy Admission Review - Admission Clinical Review (Last Reviewed 06/18/20 @ 20:58 by Kyler Donis) Pressure ulcer (Acute) Lactate blood increase (Acute) Type 2 myocardial infarction due to anemia (Acute) Mesenteric ischemia (Acute) Iron deficiency anemia (Acute) Hyperlipidemia (Acute) amitriptyline Allergy (Unknown, Unverified 06/18/20 11:31) simvastatin Allergy (Unknown, Unverified 06/18/20 11:31) Height 6 ft Weight 97.2 kg - Comments Comments/Follow Ups: IV protonix drip for GI bleed/heme+ stools, has received 3U of PRBC - goal Hg of >8, demand ischemia due to iron deficiency anemia - 300U iron sucrose infused this AM, monitor for development of CHF with fluid from PRBC, blood lactate was elevated likely from demand ischemia but cannot r/o adverse effect from metformin which is on hold - SSI ordered q6h while NPO, will continue isosorbide once blood pressure has stabillized post blood transfusion - Renal Dosing Renal Dosing: BUN 32 mg/dL (7-18) H 06/19/20 06:12 Creatinine 0.9 mg/dL (0.70-1.30) 06/19/20 06:12 Medications needing adjustments: Reviewed List of meds needing interventions: eCrCl 85 ml/min - Anticoagulation Anticoagulation: Hgb Cancelled 06/19/20 08:30 Hct Cancelled 06/19/20 08:30 Plt Count 91 10^3/uL (130-400) L 06/19/20 06:12 INR 1.2 (0.9-1.1) H 06/18/20 17:45 Creatinine 0.9 mg/dL (0.70-1.30) 06/19/20 06:12 DVT Prohphylaxis: N/A Therapeutic Anticoagulation: N/A - Opiate Usage Evaluate Pain Scale/Pains Meds: N/A Scheduled Bowel Reg ordered if on Opiates?: Yes (PRN orders) - Relevant Labs Sodium 139 mmol/L (136-145) 06/19/20 06:12 Potassium 4.4 mmol/L (3.5-5.1) D 06/19/20 06:12 Chloride 105 mmol/L (98-107) 06/19/20 06:12 Magnesium 2.4 mg/dL (1.8-2.4) 06/19/20 06:21 C-Reactive Protein 0.11 mg/dL (0.0-0.3) 06/18/20 18:40 Electrolytes, C-Reactive P, ESR: Reviewed - DM Control DM Control: Glucose 78 mg/dL (74-106) 06/19/20 06:12 Finger Stick Blood Glucose 83 Insulin Dosing: Reviewed (scheduled aspart per SS) - Heart Failure/ME Heart Failure/ME: Troponin I 0.12 ng/mL (<0.06) H* 06/19/20 06:21 NT-Pro-B Natriuret Pep 1297 pg/mL (<300) H 06/19/20 06:12 EF%, MAGEN's, B-Blockers, Diuretics: Reviewed (Demand ischemia secondary to anemia; metoprolol, home med list also includes: furosemide, isosorbide) - BP Control BP Control: Blood Pressure 94/46 Blood Pressure 101/43 Blood Pressure 101/45 Blood Pressure 101/45 Blood Pressure 101/45 Blood Pressure 100/52 Blood Pressure 102/47 Blood Pressure 97/48 Blood Pressure 100/48 Blood Pressure 105/44 Blood Pressure 108/46 Blood Pressure 108/46 Blood Pressure 110/46 Blood Pressure 116/52 Blood Pressure 104/66 Blood Pressure 95/47 Blood Pressure 108/50 Blood Pressure 102/47 Blood Pressure 98/50 Blood Pressure 110/50 Blood Pressure 94/46 Blood Pressure 102/51 Blood Pressure 88/47 Blood Pressure 93/50 Blood Pressure 110/52 Blood Pressure 119/63 - Qtc Review If Elevated: Reviewed List meds needing interventions: QTc 516 on admission -- watch for addition of QT prolonging medications - IV to PO Switch IV Medications: Reviewed - Home Meds Home Med List reviewed: Reviewed Relevent Home Meds Not ordered & why?: aspirin (GI bleed), clopidogrel, furosemide (borderline hypotension), glyburide (SSI ordered), isosorbide (borderline hypotension), metformin, metronidazole (crushed and applied to wound), omeprazole (on protonix gtt); DDIs: Concomitant use of clopidogrel and omeprazole reduces levels of the clopidogrel active metabolite and reduces platelet inhibition, other PPIs (ie: pantoprazole) have less effect on antiplatelet activity of plavix; If a patient develops high on-treatment platelet reactivity during treatment with clopidogrel and a statin metabolized by CY (ie, atorvastatin, lovastatin, or simvastatin), discontinue the statin and substitute a statin that is not metabolized by CY (ie, pravastatin or rosuvastatin) - Current meds Current Medication Order Review: Reviewed
--- NOTE | 2020-06-19 10:30 | PGE_ITS ---
Date of Service Date of service: 06/19/20 Time of Service: 08:49 Assessment and Plan Assessment and plan (1) Type 2 myocardial infarction due to anemia: Status: Acute Assessment and plan: Significant anemia secondary to GI blood loss. Troponin trend: 0.17 > 0.14> 0.16>0.12>pending. No CP No echocardiogram currently available. Holding Imdur and lasix. Continuing metoprolol with parameters for holding for bradycardia or hypotension. (2) GI bleed: Status: Chronic Assessment and plan: Initial Hgb 6.6. S/P 3 units RBCs; Hgb now 8.1 Repeat H/H at 1200. Gen Surg consulted and planning endoscopies. SBP in the 90's to low 100's. Qualifiers: GI bleed type/associated pathology: unspecified gastrointestinal hemorrhage type Qualified Code(s): K92.2 - Gastrointestinal hemorrhage, unspecified (3) Mesenteric ischemia: Status: Acute Assessment and plan: Secondary to GI blood loss. Initial lactate 3.5 > 4.8, now normal at 1.2. (4) Hyperlipidemia: Status: Acute Assessment and plan: Cont Lovastatin Qualifiers: Hyperlipidemia type: unspecified Qualified Code(s): E78.5 - Hyperlipidemia, unspecified (5) Coronary artery disease: Status: Chronic Assessment and plan: No anginal complaints. Cont metoprolol. Qualifiers: Coronary Disease-Associated Artery/Lesion type: [place] artery [place] vs. transplanted heart: [place] heart Associated angina: without angina Qualified Code(s): I25.10 - Atherosclerotic heart disease of [place] coronary artery without angina pectoris (6) Hypertension: Status: Chronic Assessment and plan: Continuing metoprolol; watching for hypotension. Holding Imdur and lasix. Qualifiers: Hypertension type: essential hypertension Qualified Code(s): I10 - Essential (primary) hypertension (7) Pressure ulcer: Status: Acute Assessment and plan: Wound care to evaluate and manage. Qualifiers: Pressure injury location: upper back Pressure injury stage: unspecified pressure injury stage Laterality: right Qualified Code(s): L89.119 - Pressure ulcer of right upper back, unspecified stage (8) Diabetes: Status: Chronic Assessment and plan: Metformin on hold; presented with lactic acidosis. Cont glucose monitoring with sliding scale insulin correction dosing. 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 Exam Const General: cooperative and other (asleep.) Nutritional Appearance: overweight Resp Effort & Inspection: normal respiratory effort Auscultation: clear to auscultation bilaterally Cardio Rate: regular rate Rhythm: regular rhythm Heart Sounds: S1 normal and S2 normal GI Palpation: soft and nontender Extrem General: no pedal edema and no calf tenderness Objective Last Vital Signs Temp 36.3 C L 06/19/20 08:10 Pulse 83 06/19/20 08:10 Resp 10 L 06/19/20 08:10 BP 94/46 L 06/19/20 06:32 Pulse Ox 96 06/19/20 08:10 Laboratory Results - last 24 hr 06/18/20 06/18/20 06/18/20 12:15 12:15 12:15 WBC 4.67 RBC 3.59 L Hgb 6.6 L* Hct 23.6 L MCV 65.7 L MCH 18.4 L MCHC 28.0 L RDW 16.6 H Plt Count 123 L MPV 10.4 Immature Gran % 0.4 Neutrophils % 73.5 Lymphocytes % 17.1 Monocytes % 7.5 Eosinophils % 1.1 Basophils % 0.4 Nucleated RBC % 0 Absolute Neutrophils 3.43 Absolute Lymphocytes 0.80 L Absolute Monocytes 0.35 Absolute Eosinophils 0.05 Absolute Basophils 0.02 RBC Morphology See below Polychromasia Present Hypochromasia 3+ Poikilocytosis 2+ Anisocytosis Microcytosis 2+ PT INR APTT VBG Lactate 3.5 H* Sodium 137 Potassium 4.3 Chloride 99 Carbon Dioxide 28.1 Anion Gap 9.9 BUN 39 H Creatinine 1.0 Estimated GFR/1.73 m2 >= 60.00 Glucose 238 H Calcium 8.8 Magnesium Iron TIBC Transferrin % Sat Total Bilirubin 0.4 AST 34 ALT 18 Alkaline Phosphatase 144 H Troponin I C-Reactive Protein NT-Pro-B Natriuret Pep Total Protein 7.7 Albumin 3.2 L Lipase 102 Vitamin B12 Folate TSH Urine Color Urine Clarity Urine pH Ur Specific [place] Urine Protein Urine Ketones Urine Blood Urine Nitrite Urine Bilirubin Urine Urobilinogen Ur Leukocyte Esterase Urine RBC Urine WBC Ur Epithelial Cells Urine Crystals Urine Bacteria Urine Casts Urine Mucus Ur Culture Indicated? Urine Glucose COVID-19 Source SARS-CoV-2 (PCR) Pathology Consult Spec Patient ABO/Rh Antibody Screen Crossmatch 06/18/20 06/18/20 06/18/20 12:15 12:57 16:48 WBC RBC Hgb Hct MCV MCH MCHC RDW Plt Count MPV Immature Gran % Neutrophils % Lymphocytes % Monocytes % Eosinophils % Basophils % Nucleated RBC % Absolute Neutrophils Absolute Lymphocytes Absolute Monocytes Absolute Eosinophils Absolute Basophils RBC Morphology Polychromasia Hypochromasia Poikilocytosis Anisocytosis Microcytosis PT INR APTT VBG Lactate 4.8 H* Sodium Potassium Chloride Carbon Dioxide Anion Gap BUN Creatinine Estimated GFR/1.73 m2 Glucose Calcium Magnesium Iron TIBC Transferrin % Sat Total Bilirubin AST ALT Alkaline Phosphatase Troponin I C-Reactive Protein NT-Pro-B Natriuret Pep 1137 H Total Protein Albumin Lipase Vitamin B12 Folate TSH Urine Color Yellow Urine Clarity Clear Urine pH 6.5 Ur Specific [place] 1.020 Urine Protein Negative Urine Ketones Negative Urine Blood Small H Urine Nitrite Negative Urine Bilirubin Negative Urine Urobilinogen 0.2 Ur Leukocyte Esterase Negative Urine RBC 5-10 H Urine WBC 0-2 Ur Epithelial Cells Rare Urine Crystals Negative Urine Bacteria Rare Urine Casts Negative Urine Mucus Negative Ur Culture Indicated? No Urine Glucose Negative COVID-19 Source SARS-CoV-2 (PCR) Pathology Consult Spec Patient ABO/Rh Antibody Screen Crossmatch 06/18/20 06/18/20 06/18/20 17:10 17:45 17:45 WBC 5.23 RBC 3.50 L Hgb 6.5 L* Hct 23.3 L MCV 66.6 L MCH 18.6 L MCHC 27.9 L RDW 16.5 H Plt Count 129 L MPV 10.5 Immature Gran % Neutrophils % Lymphocytes % Monocytes % Eosinophils % Basophils % Nucleated RBC % Absolute Neutrophils Absolute Lymphocytes Absolute Monocytes Absolute Eosinophils Absolute Basophils RBC Morphology Polychromasia Hypochromasia Poikilocytosis Anisocytosis Microcytosis PT INR APTT VBG Lactate Sodium Potassium Chloride Carbon Dioxide Anion Gap BUN Creatinine Estimated GFR/1.73 m2 Glucose Calcium Magnesium Iron TIBC Transferrin % Sat Total Bilirubin AST ALT Alkaline Phosphatase Troponin I C-Reactive Protein NT-Pro-B Natriuret Pep Total Protein Albumin Lipase Vitamin B12 Folate TSH Urine Color Urine Clarity Urine pH Ur Specific [place] Urine Protein Urine Ketones Urine Blood Urine Nitrite Urine Bilirubin Urine Urobilinogen Ur Leukocyte Esterase Urine RBC Urine WBC Ur Epithelial Cells Urine Crystals Urine Bacteria Urine Casts Urine Mucus Ur Culture Indicated? Urine Glucose COVID-19 Source SARS-CoV-2 (PCR) Pathology Consult Spec Cancelled Patient ABO/Rh O Negative Antibody Screen Negative Crossmatch See Detail 06/18/20 06/18/20 06/18/20 17:45 17:45 17:55 WBC RBC Hgb Hct MCV MCH MCHC RDW Plt Count MPV Immature Gran % Neutrophils % Lymphocytes % Monocytes % Eosinophils % Basophils % Nucleated RBC % Absolute Neutrophils Absolute Lymphocytes Absolute Monocytes Absolute Eosinophils Absolute Basophils RBC Morphology Polychromasia Hypochromasia Poikilocytosis Anisocytosis Microcytosis PT 12.4 H INR 1.2 H APTT VBG Lactate Sodium Potassium Chloride Carbon Dioxide Anion Gap BUN Creatinine Estimated GFR/1.73 m2 Glucose Calcium Magnesium Iron TIBC Transferrin % Sat Total Bilirubin AST ALT Alkaline Phosphatase Troponin I 0.17 H* C-Reactive Protein NT-Pro-B Natriuret Pep Total Protein Albumin Lipase Vitamin B12 Folate TSH Urine Color Urine Clarity Urine pH Ur Specific [place] Urine Protein Urine Ketones Urine Blood Urine Nitrite Urine Bilirubin Urine Urobilinogen Ur Leukocyte Esterase Urine RBC Urine WBC Ur Epithelial Cells Urine Crystals Urine Bacteria Urine Casts Urine Mucus Ur Culture Indicated? Urine Glucose COVID-19 Source Nasopharyx SARS-CoV-2 (PCR) Negative Pathology Consult Spec Patient ABO/Rh Antibody Screen Crossmatch 06/18/20 06/18/20 06/18/20 18:40 18:40 18:40 WBC RBC Hgb Hct MCV MCH MCHC RDW Plt Count MPV Immature Gran % Neutrophils % Lymphocytes % Monocytes % Eosinophils % Basophils % Nucleated RBC % Absolute Neutrophils Absolute Lymphocytes Absolute Monocytes Absolute Eosinophils Absolute Basophils RBC Morphology Polychromasia Hypochromasia Poikilocytosis Anisocytosis Microcytosis PT INR APTT VBG Lactate Sodium Potassium Chloride Carbon Dioxide Anion Gap BUN Creatinine Estimated GFR/1.73 m2 Glucose Calcium Magnesium Iron 13 L TIBC 499 H Transferrin % Sat 3 L Total Bilirubin AST ALT Alkaline Phosphatase Troponin I C-Reactive Protein 0.11 NT-Pro-B Natriuret Pep Total Protein Albumin Lipase Vitamin B12 463 Folate 7.8 L TSH 3.25 Urine Color Urine Clarity Urine pH Ur Specific [place] Urine Protein Urine Ketones Urine Blood Urine Nitrite Urine Bilirubin Urine Urobilinogen Ur Leukocyte Esterase Urine RBC Urine WBC Ur Epithelial Cells Urine Crystals Urine Bacteria Urine Casts Urine Mucus Ur Culture Indicated? Urine Glucose COVID-19 Source SARS-CoV-2 (PCR) Pathology Consult Spec Patient ABO/Rh Antibody Screen Crossmatch 06/18/20 06/18/20 06/18/20 20:00 20:16 20:16 WBC RBC Hgb Cancelled Hct Cancelled MCV MCH MCHC RDW Plt Count MPV Immature Gran % Neutrophils % Lymphocytes % Monocytes % Eosinophils % Basophils % Nucleated RBC % Absolute Neutrophils Absolute Lymphocytes Absolute Monocytes Absolute Eosinophils Absolute Basophils RBC Morphology Polychromasia Hypochromasia Poikilocytosis Anisocytosis Microcytosis PT INR APTT VBG Lactate 2.8 H* Sodium Potassium Chloride Carbon Dioxide Anion Gap BUN Creatinine Estimated GFR/1.73 m2 Glucose Calcium Magnesium Iron TIBC Transferrin % Sat Total Bilirubin AST ALT Alkaline Phosphatase Troponin I 0.14 H* C-Reactive Protein NT-Pro-B Natriuret Pep Total Protein Albumin Lipase Vitamin B12 Folate TSH Urine Color Urine Clarity Urine pH Ur Specific [place] Urine Protein Urine Ketones Urine Blood Urine Nitrite Urine Bilirubin Urine Urobilinogen Ur Leukocyte Esterase Urine RBC Urine WBC Ur Epithelial Cells Urine Crystals Urine Bacteria Urine Casts Urine Mucus Ur Culture Indicated? Urine Glucose COVID-19 Source SARS-CoV-2 (PCR) Pathology Consult Spec Patient ABO/Rh Antibody Screen Crossmatch 06/18/20 06/19/20 06/19/20 20:16 00:15 00:15 WBC RBC Hgb Hct MCV MCH MCHC RDW Plt Count MPV Immature Gran % Neutrophils % Lymphocytes % Monocytes % Eosinophils % Basophils % Nucleated RBC % Absolute Neutrophils Absolute Lymphocytes Absolute Monocytes Absolute Eosinophils Absolute Basophils RBC Morphology Polychromasia Hypochromasia Poikilocytosis Anisocytosis Microcytosis PT INR APTT VBG Lactate 1.5 H Sodium 143 Potassium 3.0 L D Chloride 109 H Carbon Dioxide 25.3 Anion Gap 8.7 BUN 30 H D Creatinine 0.8 Estimated GFR/1.73 m2 >= 60.00 Glucose 64 L D Calcium 7.2 L Magnesium Iron TIBC Transferrin % Sat Total Bilirubin AST ALT Alkaline Phosphatase Troponin I 0.16 H* C-Reactive Protein NT-Pro-B Natriuret Pep Total Protein Albumin Lipase Vitamin B12 Folate TSH Urine Color Urine Clarity Urine pH Ur Specific [place] Urine Protein Urine Ketones Urine Blood Urine Nitrite Urine Bilirubin Urine Urobilinogen Ur Leukocyte Esterase Urine RBC Urine WBC Ur Epithelial Cells Urine Crystals Urine Bacteria Urine Casts Urine Mucus Ur Culture Indicated? Urine Glucose COVID-19 Source SARS-CoV-2 (PCR) Pathology Consult Spec Patient ABO/Rh Antibody Screen Crossmatch 06/19/20 06/19/20 06/19/20 00:15 00:15 00:30 WBC RBC Hgb 6.2 L* Hct 21.6 L MCV MCH MCHC RDW Plt Count MPV Immature Gran % Neutrophils % Lymphocytes % Monocytes % Eosinophils % Basophils % Nucleated RBC % Absolute Neutrophils Absolute Lymphocytes Absolute Monocytes Absolute Eosinophils Absolute Basophils RBC Morphology Polychromasia Hypochromasia Poikilocytosis Anisocytosis Microcytosis PT INR APTT 22.6 VBG Lactate Sodium Potassium Chloride Carbon Dioxide Anion Gap BUN Creatinine Estimated GFR/1.73 m2 Glucose Calcium Magnesium 1.5 L Iron TIBC Transferrin % Sat Total Bilirubin AST ALT Alkaline Phosphatase Troponin I C-Reactive Protein NT-Pro-B Natriuret Pep Total Protein Albumin Lipase Vitamin B12 Folate TSH Urine Color Urine Clarity Urine pH Ur Specific [place] Urine Protein Urine Ketones Urine Blood Urine Nitrite Urine Bilirubin Urine Urobilinogen Ur Leukocyte Esterase Urine RBC Urine WBC Ur Epithelial Cells Urine Crystals Urine Bacteria Urine Casts Urine Mucus Ur Culture Indicated? Urine Glucose COVID-19 Source SARS-CoV-2 (PCR) Pathology Consult Spec Patient ABO/Rh Antibody Screen Crossmatch 06/19/20 06/19/20 06/19/20 06:12 06:12 06:12 WBC 4.97 RBC 3.93 L Hgb 8.1 L Hct 27.9 L D MCV 71.0 L D MCH 20.6 L MCHC 29.0 L RDW 19.6 H Plt Count 91 L MPV 10.1 Immature Gran % 0.4 Neutrophils % 65.4 Lymphocytes % 18.7 Monocytes % 11.9 Eosinophils % 3.0 Basophils % 0.6 Nucleated RBC % 0 Absolute Neutrophils 3.25 Absolute Lymphocytes 0.93 L Absolute Monocytes 0.59 Absolute Eosinophils 0.15 Absolute Basophils 0.03 RBC Morphology See below Polychromasia Present Hypochromasia 3+ Poikilocytosis 2+ Anisocytosis 2+ Microcytosis 3+ PT INR APTT VBG Lactate 1.2 Sodium 139 Potassium 4.4 D Chloride 105 Carbon Dioxide 31.5 Anion Gap 2.5 L BUN 32 H Creatinine 0.9 Estimated GFR/1.73 m2 >= 60.00 Glucose 78 Calcium 8.5 Magnesium Iron TIBC Transferrin % Sat Total Bilirubin 0.7 AST 23 ALT 17 Alkaline Phosphatase 111 Troponin I C-Reactive Protein NT-Pro-B Natriuret Pep 1297 H Total Protein 6.5 Albumin 2.8 L Lipase Vitamin B12 Folate TSH Urine Color Urine Clarity Urine pH Ur Specific [place] Urine Protein Urine Ketones Urine Blood Urine Nitrite Urine Bilirubin Urine Urobilinogen Ur Leukocyte Esterase Urine RBC Urine WBC Ur Epithelial Cells Urine Crystals Urine Bacteria Urine Casts Urine Mucus Ur Culture Indicated? Urine Glucose COVID-19 Source SARS-CoV-2 (PCR) Pathology Consult Spec Patient ABO/Rh Antibody Screen Crossmatch 06/19/20 06/19/20 06:21 08:30 WBC RBC Hgb Cancelled Hct Cancelled MCV MCH MCHC RDW Plt Count MPV Immature Gran % Neutrophils % Lymphocytes % Monocytes % Eosinophils % Basophils % Nucleated RBC % Absolute Neutrophils Absolute Lymphocytes Absolute Monocytes Absolute Eosinophils Absolute Basophils RBC Morphology Polychromasia Hypochromasia Poikilocytosis Anisocytosis Microcytosis PT INR APTT VBG Lactate Sodium Potassium Chloride Carbon Dioxide Anion Gap BUN Creatinine Estimated GFR/1.73 m2 Glucose Calcium Magnesium 2.4 Iron TIBC Transferrin % Sat Total Bilirubin AST ALT Alkaline Phosphatase Troponin I 0.12 H* C-Reactive Protein NT-Pro-B Natriuret Pep Total Protein Albumin Lipase Vitamin B12 Folate TSH Urine Color Urine Clarity Urine pH Ur Specific [place] Urine Protein Urine Ketones Urine Blood Urine Nitrite Urine Bilirubin Urine Urobilinogen Ur Leukocyte Esterase Urine RBC Urine WBC Ur Epithelial Cells Urine Crystals Urine Bacteria Urine Casts Urine Mucus Ur Culture Indicated? Urine Glucose COVID-19 Source SARS-CoV-2 (PCR) Pathology Consult Spec Patient ABO/Rh Antibody Screen Crossmatch
--- NOTE | 2020-06-19 11:32 | W.INDIABCONS ---
Date of service: 06/19/20 Time of Service: 11:32 Diabetes Inpatient Consult DESCRIPTION/ASSESSMENT: 69 year old male admitted with GI Bleed with hx of mass of pancreas, pressure ulcer, HI, CAD, DM, HTN. BMI stable x 1 year, indicates overweight status. Home meds include glyburide 5 mg BID. No recent A1c. Blood sugars wnl since admit. Pt having EGD today, not in room when came to visit. At this time, diabetes appears well managed with oral agents. No education needed at this time. PLAN: advance to diabetic diet when appropriate will continue to follow/monitor po intake, labs and weight. Time Spent in Nutritional Counseling and Treatment: 0
[2020-06-19] MEDS: Normal Saline 1,000 ML 50 ML IV (12:18)
[2020-06-19 12:39] LABS: HCT 30.2 % (40.0-50.0); HGB 8.9 g/dL (13.5-17.5)
[2020-06-19] MEDS: MORPHine 4 MG/ML SYR IVP ×2 (13:20→17:25)
--- NOTE | 2020-06-19 13:54 | PGE_ITS ---
Date of Service Date of service: 06/19/20 Time of Service: 13:54 Assessment and Plan Assessment and plan (1) Anemia: Status: Chronic (2) GI bleed: Status: Acute Assessment and plan: EGD today. acceptable risk per anesthesia clinda preOP pt has given consent PPI/carafate follow h/h 60 mins spent reviewing pt charts from [facility] and coordinating care/examing pt/d/w procedure adn documentation, reviewing overnight labs (cbc/crp/iron studies/trop) Qualifiers: GI bleed type/associated pathology: unspecified gastrointestinal hemorrhage type Qualified Code(s): K92.2 - Gastrointestinal hemorrhage, unspecified (3) Type 2 myocardial infarction due to anemia: Status: Acute (4) Lactate blood increase: Status: Resolved (5) Pressure ulcer: Status: Acute Qualifiers: Pressure injury location: upper back Pressure injury stage: unspecified pressure injury stage Laterality: right Qualified Code(s): L89.119 - Pressure ulcer of right upper back, unspecified stage (6) Cystic mass of pancreas: Status: Acute (7) PFO (patent foramen ovale): Status: Acute Subjective Subjective Interval history since last seen: Pt still c/o mild abdominal pain, but not as bad as last pm. d/w pt the EGD - what the procedure is and what information it will gives us, and risks, including but not limited to: bleeding, infection, perforation,aspiration,complications of aneathesia. ZE from 04/2019 reviewed vs an echo we were able to obtain today. Pt has a patent foramen ovale on ZE. will give clinda prior to the EGD. Pt plavix was help last pm, but otherwise has been receiving. I did review the pt CT w/ Dr. Berry. Pt does have severe athersclerosis of the mojority of arteries- including aorata/illiacs/femorals/celiac access/SMA/SELIN. SELIN is 90% occluded. Pt had severe atherosclerosis on his PTC in 2019 and they could not do angioplasty of his vessels, hence he had to have a CABG. He than had a large stroke 8days postOp. He made no progress in rehab and was transferred to [facility] and is bed bound and requires total care. He is edith to eat and swallow. He is dysarthric. He is on ASA & plavix, b/c of the stroke. He is not on a PPI/H2. Reviewed charts from [facility] - he was very recently discharged from [facility] to [facility]& and hgb was around 7. I reviewed notes form [facility] from 2019 hosp stay. He received 2 PRBC last pm and on Protonix ggts. Exam HENMT Other: right sided facial droop- chronic poor dentition sclera clear. no jaundice Resp Effort & Inspection: normal respiratory effort Auscultation: clear to auscultation bilaterally Cardio Rate: regular rate Rhythm: regular rhythm GI Palpation: soft Auscultation: normal bowel sounds Other: mild pain in epigastric region. no peritonitis. Skin Other: breakdown on cocyxx and LLE. wounds are dressing adn not visualized. Objective Last Vital Signs Temp 36.3 C L 06/19/20 12:00 Pulse 83 06/19/20 12:00 Resp 10 L 06/19/20 12:00 BP 94/46 L 06/19/20 06:32 Pulse Ox 96 06/19/20 12:00 Laboratory Results - last 24 hr 06/18/20 06/18/20 06/18/20 12:15 16:48 17:10 WBC RBC Hgb Hct MCV MCH MCHC RDW Plt Count MPV Immature Gran % Neutrophils % Lymphocytes % Monocytes % Eosinophils % Basophils % Nucleated RBC % Absolute Neutrophils Absolute Lymphocytes Absolute Monocytes Absolute Eosinophils Absolute Basophils RBC Morphology Polychromasia Hypochromasia Poikilocytosis Anisocytosis Microcytosis PT INR APTT VBG Lactate 4.8 H* Sodium Potassium Chloride Carbon Dioxide Anion Gap BUN Creatinine Estimated GFR/1.73 m2 Glucose Calcium Magnesium Iron TIBC Transferrin % Sat Total Bilirubin AST ALT Alkaline Phosphatase Troponin I C-Reactive Protein NT-Pro-B Natriuret Pep 1137 H Total Protein Albumin Vitamin B12 Folate TSH COVID-19 Source SARS-CoV-2 (PCR) Pathology Consult Spec Cancelled Patient ABO/Rh Antibody Screen Crossmatch 06/18/20 06/18/20 06/18/20 17:45 17:45 17:45 WBC 5.23 RBC 3.50 L Hgb 6.5 L* Hct 23.3 L MCV 66.6 L MCH 18.6 L MCHC 27.9 L RDW 16.5 H Plt Count 129 L MPV 10.5 Immature Gran % Neutrophils % Lymphocytes % Monocytes % Eosinophils % Basophils % Nucleated RBC % Absolute Neutrophils Absolute Lymphocytes Absolute Monocytes Absolute Eosinophils Absolute Basophils RBC Morphology Polychromasia Hypochromasia Poikilocytosis Anisocytosis Microcytosis PT INR APTT VBG Lactate Sodium Potassium Chloride Carbon Dioxide Anion Gap BUN Creatinine Estimated GFR/1.73 m2 Glucose Calcium Magnesium Iron TIBC Transferrin % Sat Total Bilirubin AST ALT Alkaline Phosphatase Troponin I 0.17 H* C-Reactive Protein NT-Pro-B Natriuret Pep Total Protein Albumin Vitamin B12 Folate TSH COVID-19 Source SARS-CoV-2 (PCR) Pathology Consult Spec Patient ABO/Rh O Negative Antibody Screen Negative Crossmatch See Detail 06/18/20 06/18/20 06/18/20 17:45 17:55 18:40 WBC RBC Hgb Hct MCV MCH MCHC RDW Plt Count MPV Immature Gran % Neutrophils % Lymphocytes % Monocytes % Eosinophils % Basophils % Nucleated RBC % Absolute Neutrophils Absolute Lymphocytes Absolute Monocytes Absolute Eosinophils Absolute Basophils RBC Morphology Polychromasia Hypochromasia Poikilocytosis Anisocytosis Microcytosis PT 12.4 H INR 1.2 H APTT VBG Lactate Sodium Potassium Chloride Carbon Dioxide Anion Gap BUN Creatinine Estimated GFR/1.73 m2 Glucose Calcium Magnesium Iron TIBC Transferrin % Sat Total Bilirubin AST ALT Alkaline Phosphatase Troponin I C-Reactive Protein NT-Pro-B Natriuret Pep Total Protein Albumin Vitamin B12 Folate 7.8 L TSH 3.25 COVID-19 Source Nasopharyx SARS-CoV-2 (PCR) Negative Pathology Consult Spec Patient ABO/Rh Antibody Screen Crossmatch 06/18/20 06/18/20 06/18/20 18:40 18:40 20:00 WBC RBC Hgb Cancelled Hct Cancelled MCV MCH MCHC RDW Plt Count MPV Immature Gran % Neutrophils % Lymphocytes % Monocytes % Eosinophils % Basophils % Nucleated RBC % Absolute Neutrophils Absolute Lymphocytes Absolute Monocytes Absolute Eosinophils Absolute Basophils RBC Morphology Polychromasia Hypochromasia Poikilocytosis Anisocytosis Microcytosis PT INR APTT VBG Lactate Sodium Potassium Chloride Carbon Dioxide Anion Gap BUN Creatinine Estimated GFR/1.73 m2 Glucose Calcium Magnesium Iron 13 L TIBC 499 H Transferrin % Sat 3 L Total Bilirubin AST ALT Alkaline Phosphatase Troponin I C-Reactive Protein 0.11 NT-Pro-B Natriuret Pep Total Protein Albumin Vitamin B12 463 Folate TSH COVID-19 Source SARS-CoV-2 (PCR) Pathology Consult Spec Patient ABO/Rh Antibody Screen Crossmatch 06/18/20 06/18/20 06/18/20 20:16 20:16 20:16 WBC RBC Hgb Hct MCV MCH MCHC RDW Plt Count MPV Immature Gran % Neutrophils % Lymphocytes % Monocytes % Eosinophils % Basophils % Nucleated RBC % Absolute Neutrophils Absolute Lymphocytes Absolute Monocytes Absolute Eosinophils Absolute Basophils RBC Morphology Polychromasia Hypochromasia Poikilocytosis Anisocytosis Microcytosis PT INR APTT VBG Lactate 2.8 H* Sodium 143 Potassium 3.0 L D Chloride 109 H Carbon Dioxide 25.3 Anion Gap 8.7 BUN 30 H D Creatinine 0.8 Estimated GFR/1.73 m2 >= 60.00 Glucose 64 L D Calcium 7.2 L Magnesium Iron TIBC Transferrin % Sat Total Bilirubin AST ALT Alkaline Phosphatase Troponin I 0.14 H* C-Reactive Protein NT-Pro-B Natriuret Pep Total Protein Albumin Vitamin B12 Folate TSH COVID-19 Source SARS-CoV-2 (PCR) Pathology Consult Spec Patient ABO/Rh Antibody Screen Crossmatch 06/19/20 06/19/20 06/19/20 00:15 00:15 00:15 WBC RBC Hgb 6.2 L* Hct 21.6 L MCV MCH MCHC RDW Plt Count MPV Immature Gran % Neutrophils % Lymphocytes % Monocytes % Eosinophils % Basophils % Nucleated RBC % Absolute Neutrophils Absolute Lymphocytes Absolute Monocytes Absolute Eosinophils Absolute Basophils RBC Morphology Polychromasia Hypochromasia Poikilocytosis Anisocytosis Microcytosis PT INR APTT VBG Lactate 1.5 H Sodium Potassium Chloride Carbon Dioxide Anion Gap BUN Creatinine Estimated GFR/1.73 m2 Glucose Calcium Magnesium Iron TIBC Transferrin % Sat Total Bilirubin AST ALT Alkaline Phosphatase Troponin I 0.16 H* C-Reactive Protein NT-Pro-B Natriuret Pep Total Protein Albumin Vitamin B12 Folate TSH COVID-19 Source SARS-CoV-2 (PCR) Pathology Consult Spec Patient ABO/Rh Antibody Screen Crossmatch 06/19/20 06/19/20 06/19/20 00:15 00:30 06:12 WBC RBC Hgb Hct MCV MCH MCHC RDW Plt Count MPV Immature Gran % Neutrophils % Lymphocytes % Monocytes % Eosinophils % Basophils % Nucleated RBC % Absolute Neutrophils Absolute Lymphocytes Absolute Monocytes Absolute Eosinophils Absolute Basophils RBC Morphology Polychromasia Hypochromasia Poikilocytosis Anisocytosis Microcytosis PT INR APTT 22.6 VBG Lactate 1.2 Sodium Potassium Chloride Carbon Dioxide Anion Gap BUN Creatinine Estimated GFR/1.73 m2 Glucose Calcium Magnesium 1.5 L Iron TIBC Transferrin % Sat Total Bilirubin AST ALT Alkaline Phosphatase Troponin I C-Reactive Protein NT-Pro-B Natriuret Pep Total Protein Albumin Vitamin B12 Folate [facility] COVID-19 Source SARS-CoV-2 (PCR) Pathology Consult Spec Patient ABO/Rh Antibody Screen Crossmatch 06/19/20 06/19/20 06/19/20 06:12 06:12 06:21 WBC 4.97 RBC 3.93 L Hgb 8.1 L Hct 27.9 L D MCV 71.0 L D MCH 20.6 L MCHC 29.0 L RDW 19.6 H Plt Count 91 L MPV 10.1 Immature Gran % 0.4 Neutrophils % 65.4 Lymphocytes % 18.7 Monocytes % 11.9 Eosinophils % 3.0 Basophils % 0.6 Nucleated RBC % 0 Absolute Neutrophils 3.25 Absolute Lymphocytes 0.93 L Absolute Monocytes 0.59 Absolute Eosinophils 0.15 Absolute Basophils 0.03 RBC Morphology See below Polychromasia Present Hypochromasia 3+ Poikilocytosis 2+ Anisocytosis 2+ Microcytosis 3+ PT INR APTT VBG Lactate Sodium 139 Potassium 4.4 D Chloride 105 Carbon Dioxide 31.5 Anion Gap 2.5 L BUN 32 H Creatinine 0.9 Estimated GFR/1.73 m2 >= 60.00 Glucose 78 Calcium 8.5 Magnesium 2.4 Iron TIBC Transferrin % Sat Total Bilirubin 0.7 AST 23 ALT 17 Alkaline Phosphatase 111 Troponin I 0.12 H* C-Reactive Protein NT-Pro-B Natriuret Pep 1297 H Total Protein 6.5 Albumin 2.8 L Vitamin B12 Folate [facility] COVID-19 Source SARS-CoV-2 (PCR) Pathology Consult Spec Patient ABO/Rh Antibody Screen Crossmatch 06/19/20 06/19/20 06/19/20 08:30 12:20 12:20 WBC RBC Hgb Cancelled 8.9 L Hct Cancelled 30.2 L MCV MCH MCHC RDW Plt Count MPV Immature Gran % Neutrophils % Lymphocytes % Monocytes % Eosinophils % Basophils % Nucleated RBC % Absolute Neutrophils Absolute Lymphocytes Absolute Monocytes Absolute Eosinophils Absolute Basophils RBC Morphology Polychromasia Hypochromasia Poikilocytosis Anisocytosis Microcytosis PT INR APTT VBG Lactate Sodium Potassium Chloride Carbon Dioxide Anion Gap BUN Creatinine Estimated GFR/1.73 m2 Glucose Calcium Magnesium Iron TIBC Transferrin % Sat Total Bilirubin AST ALT Alkaline Phosphatase Troponin I 0.10 H* C-Reactive Protein NT-Pro-B Natriuret Pep Total Protein Albumin Vitamin B12 Folate TSH COVID-19 Source SARS-CoV-2 (PCR) Pathology Consult Spec Patient ABO/Rh Antibody Screen Crossmatch
[2020-06-19] MEDS: Lactated Ringers 500 ML 30 ML IV (14:18)
[2020-06-19] MEDS: Sucralfate 1 GM TAB PO ×2 (15:57→21:31)
--- NOTE | 2020-06-19 16:41 | W.PM.ENDDOP ---
Date of service: 06/19/20 Time of Service: 16:41 Endoscopy Report DATE OF PROCEDURE: 06/19/20 PRE-OP DIAGNOSIS: abdominsl pain/anemia POST-OP DIAGNOSIS: other (Hemorrhagic gastritis/esophagitis/duodenitis) PROCEDURE: EGD with biopsy ANESTHESIA: MAC ESTIMATED BLOOD LOSS: 0 PATHOLOGY: none sent COMPLICATIONS: None DISPOSITION: PACU PROCEDURE DESCRIPTION: After informed consent was obtained the patient was take to the procedure room and placed in a supine position. Monitors were applied and a time out was done. The patients name, date of , procedure type, allergies to medications and metal in their body was reviewed. A bite block was placed and the patient was sedated. Once sedated and comfortable the gastroscope was advanced through the oropharynx which was grossly normal into the esophagus. He has mult areas of echymosis on his tongue. The proximal and mid-esophagus were nl. In the distal esophagus there was moderate esophagitis noted. No esophageal erosions varices diverticula or strictures apparent. There is no hiatal hernia. The scope was advanced into the stomach and through the pylorus into the 3rd portion of the duodenum. The duodenum was noted to be mild nonhemorrhagic duodenitis. Biopsies were done not done because the patient is on Plavix.. The scope was retracted back into the stomach and biopsies were done to rule out H. pylori. Severe punctate erosive gastritis throughout the entirety of the stomach. There is no signs of active or old bleeding. The mucosa is extremely friable and does bleed readily w/ just the passage of the scope. there is no polyps or masses. The scope was retroflexed. The cardia and fundus were noted to be hemorrhagic gastritis. There no a hiatal hernia noted. The scope was removed and the patient was woken up and taken back to [facility] in stable condition.
--- NOTE | 2020-06-19 16:44 | PGE_ITS ---
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 I did review findings with the hospitalist. I did review his CAT scans with radiology. He does have severe atherosclerosis of pretty much all of his arteries. He has moderate atherosclerosis of the celiac axis and the SMA. Is severe stenosis of the SELIN and is at risk for mesenteric ischemic. There is no signs of ongoing. Ischemia. He has has severe hemorrhagic gastritis most likely secondary to the aspirin. He is no longer a candidate for aspirin therapy. Given his severe arterial disease he should probably remain on the P lavix however he does need to be on lifelong PPI and Carafate therapy. We will continue with iron supplementation Incidentally while I was reviewing the CT scan with Dr. Berry, she notes a questionable left lower segment PE. I did discuss with Dr. Romero and CT is recommended for follow-up. 45 minsutes spent in care-consulting w/ rads/hosp/reviewing CT/PMhx and me findings on EGD 21:31 I did review the results of the Chest CT. This does show a small PE. Clinically, he is not having any respiratory distress. Based on the findings on EGD, I do not feel he is a good candidate for full anticoagulaton at this time, Given his severe hemorrhagic gastritis, and bleeding/low hemaglobin state. He is still on plavix. We will check US for DVT. Pt is non-mobile and high risk for chroic DVT. -pt has severe atherosclerosis -PT has severe hemorrhagic gastritis -s/p CVA approx 1 yr ago today. Pt had severe deficeits adn made minimal progress in rehab -s/p CBAG. still has severe cardiac calcifications. 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 (4) Heart failure with preserved ejection fraction: Status: Chronic (5) Right foot ulcer: Status: Acute (6) Iron deficiency anemia: Status: Acute Qualifiers: Iron deficiency anemia type: chronic blood loss Qualified Code(s): D50.0 - Iron deficiency anemia secondary to blood loss (chronic) (7) Erosive gastritis: Status: Acute (8) Gastritis/duodenitis: Status: Acute (9) Esophagitis determined by endoscopy: Status: Acute (10) 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: Status: Acute Objective Last Vital Signs Temp 36.4 C L 06/19/20 16:16 Pulse 70 06/19/20 16:40 Resp 17 06/19/20 16:31 BP 109/51 L 06/19/20 16:40 Pulse Ox 94 06/19/20 16:40 Laboratory Results - last 24 hr 06/18/20 06/18/20 06/18/20 12:15 12:15 16:48 WBC RBC Hgb Hct MCV MCH MCHC RDW Plt Count MPV Immature Gran % Neutrophils % Lymphocytes % Monocytes % Eosinophils % Basophils % Nucleated RBC % Absolute Neutrophils Absolute Lymphocytes Absolute Monocytes Absolute Eosinophils Absolute Basophils RBC Morphology Polychromasia Hypochromasia Poikilocytosis Anisocytosis Microcytosis PT INR APTT VBG Lactate 4.8 H* Sodium Potassium Chloride Carbon Dioxide Anion Gap BUN Creatinine Estimated GFR/1.73 m2 Glucose Calcium Magnesium Iron TIBC Transferrin % Sat Total Bilirubin AST ALT Alkaline Phosphatase Troponin I C-Reactive Protein NT-Pro-B Natriuret Pep 1137 H Total Protein Albumin Vitamin B12 Folate TSH COVID-19 Source SARS-CoV-2 (PCR) Pathology Consult Spec Patient ABO/Rh Antibody Screen Crossmatch 06/18/20 06/18/20 06/18/20 17:10 17:45 17:45 WBC 5.23 RBC 3.50 L Hgb 6.5 L* Hct 23.3 L MCV 66.6 L MCH 18.6 L MCHC 27.9 L RDW 16.5 H Plt Count 129 L MPV 10.5 Immature Gran % Neutrophils % Lymphocytes % Monocytes % Eosinophils % Basophils % Nucleated RBC % Absolute Neutrophils Absolute Lymphocytes Absolute Monocytes Absolute Eosinophils Absolute Basophils RBC Morphology Polychromasia Hypochromasia Poikilocytosis Anisocytosis Microcytosis PT INR APTT VBG Lactate Sodium Potassium Chloride Carbon Dioxide Anion Gap BUN Creatinine Estimated GFR/1.73 m2 Glucose Calcium Magnesium Iron TIBC Transferrin % Sat Total Bilirubin AST ALT Alkaline Phosphatase Troponin I C-Reactive Protein NT-Pro-B Natriuret Pep Total Protein Albumin Vitamin B12 Folate TSH COVID-19 Source SARS-CoV-2 (PCR) Pathology Consult Spec Cancelled Patient ABO/Rh O Negative Antibody Screen Negative Crossmatch See Detail 06/18/20 06/18/20 06/18/20 17:45 17:45 17:55 WBC RBC Hgb Hct MCV MCH MCHC RDW Plt Count MPV Immature Gran % Neutrophils % Lymphocytes % Monocytes % Eosinophils % Basophils % Nucleated RBC % Absolute Neutrophils Absolute Lymphocytes Absolute Monocytes Absolute Eosinophils Absolute Basophils RBC Morphology Polychromasia Hypochromasia Poikilocytosis Anisocytosis Microcytosis PT 12.4 H INR 1.2 H APTT VBG Lactate Sodium Potassium Chloride Carbon Dioxide Anion Gap BUN Creatinine Estimated GFR/1.73 m2 Glucose Calcium Magnesium Iron TIBC Transferrin % Sat Total Bilirubin AST ALT Alkaline Phosphatase Troponin I 0.17 H* C-Reactive Protein NT-Pro-B Natriuret Pep Total Protein Albumin Vitamin B12 Folate TSH COVID-19 Source Nasopharyx SARS-CoV-2 (PCR) Negative Pathology Consult Spec Patient ABO/Rh Antibody Screen Crossmatch 06/18/20 06/18/20 06/18/20 18:40 18:40 18:40 WBC RBC Hgb Hct MCV MCH MCHC RDW Plt Count MPV Immature Gran % Neutrophils % Lymphocytes % Monocytes % Eosinophils % Basophils % Nucleated RBC % Absolute Neutrophils Absolute Lymphocytes Absolute Monocytes Absolute Eosinophils Absolute Basophils RBC Morphology Polychromasia Hypochromasia Poikilocytosis Anisocytosis Microcytosis PT INR APTT VBG Lactate Sodium Potassium Chloride Carbon Dioxide Anion Gap BUN Creatinine Estimated GFR/1.73 m2 Glucose Calcium Magnesium Iron 13 L TIBC 499 H Transferrin % Sat 3 L Total Bilirubin AST ALT Alkaline Phosphatase Troponin I C-Reactive Protein 0.11 NT-Pro-B Natriuret Pep Total Protein Albumin Vitamin B12 463 Folate 7.8 L TSH 3.25 COVID-19 Source SARS-CoV-2 (PCR) Pathology Consult Spec Patient ABO/Rh Antibody Screen Crossmatch 06/18/20 06/18/20 06/18/20 20:00 20:16 20:16 WBC RBC Hgb Cancelled Hct Cancelled MCV MCH MCHC RDW Plt Count MPV Immature Gran % Neutrophils % Lymphocytes % Monocytes % Eosinophils % Basophils % Nucleated RBC % Absolute Neutrophils Absolute Lymphocytes Absolute Monocytes Absolute Eosinophils Absolute Basophils RBC Morphology Polychromasia Hypochromasia Poikilocytosis Anisocytosis Microcytosis PT INR APTT VBG Lactate 2.8 H* Sodium Potassium Chloride Carbon Dioxide Anion Gap BUN Creatinine Estimated GFR/1.73 m2 Glucose Calcium Magnesium Iron TIBC Transferrin % Sat Total Bilirubin AST ALT Alkaline Phosphatase Troponin I 0.14 H* C-Reactive Protein NT-Pro-B Natriuret Pep Total Protein Albumin Vitamin B12 Folate TSH COVID-19 Source SARS-CoV-2 (PCR) Pathology Consult Spec Patient ABO/Rh Antibody Screen Crossmatch 06/18/20 06/19/20 06/19/20 20:16 00:15 00:15 WBC RBC Hgb Hct MCV MCH MCHC RDW Plt Count MPV Immature Gran % Neutrophils % Lymphocytes % Monocytes % Eosinophils % Basophils % Nucleated RBC % Absolute Neutrophils Absolute Lymphocytes Absolute Monocytes Absolute Eosinophils Absolute Basophils RBC Morphology Polychromasia Hypochromasia Poikilocytosis Anisocytosis Microcytosis PT INR APTT VBG Lactate 1.5 H Sodium 143 Potassium 3.0 L D Chloride 109 H Carbon Dioxide 25.3 Anion Gap 8.7 BUN 30 H D Creatinine 0.8 Estimated GFR/1.73 m2 >= 60.00 Glucose 64 L D Calcium 7.2 L Magnesium Iron TIBC Transferrin % Sat Total Bilirubin AST ALT Alkaline Phosphatase Troponin I 0.16 H* C-Reactive Protein NT-Pro-B Natriuret Pep Total Protein Albumin Vitamin B12 Folate [facility] COVID-19 Source SARS-CoV-2 (PCR) Pathology Consult Spec Patient ABO/Rh Antibody Screen Crossmatch 06/19/20 06/19/20 06/19/20 00:15 00:15 00:30 WBC RBC Hgb 6.2 L* Hct 21.6 L MCV MCH MCHC RDW Plt Count MPV Immature Gran % Neutrophils % Lymphocytes % Monocytes % Eosinophils % Basophils % Nucleated RBC % Absolute Neutrophils Absolute Lymphocytes Absolute Monocytes Absolute Eosinophils Absolute Basophils RBC Morphology Polychromasia Hypochromasia Poikilocytosis Anisocytosis Microcytosis PT INR APTT 22.6 VBG Lactate Sodium Potassium Chloride Carbon Dioxide Anion Gap BUN Creatinine Estimated GFR/1.73 m2 Glucose Calcium Magnesium 1.5 L Iron TIBC Transferrin % Sat Total Bilirubin AST ALT Alkaline Phosphatase Troponin I C-Reactive Protein NT-Pro-B Natriuret Pep Total Protein Albumin Vitamin B12 Folate [facility] COVID-19 Source SARS-CoV-2 (PCR) Pathology Consult Spec Patient ABO/Rh Antibody Screen Crossmatch 06/19/20 06/19/20 06/19/20 06:12 06:12 06:12 WBC 4.97 RBC 3.93 L Hgb 8.1 L Hct 27.9 L D MCV 71.0 L D MCH 20.6 L MCHC 29.0 L RDW 19.6 H Plt Count 91 L MPV 10.1 Immature Gran % 0.4 Neutrophils % 65.4 Lymphocytes % 18.7 Monocytes % 11.9 Eosinophils % 3.0 Basophils % 0.6 Nucleated RBC % 0 Absolute Neutrophils 3.25 Absolute Lymphocytes 0.93 L Absolute Monocytes 0.59 Absolute Eosinophils 0.15 Absolute Basophils 0.03 RBC Morphology See below Polychromasia Present Hypochromasia 3+ Poikilocytosis 2+ Anisocytosis 2+ Microcytosis 3+ PT INR APTT VBG Lactate 1.2 Sodium 139 Potassium 4.4 D Chloride 105 Carbon Dioxide 31.5 Anion Gap 2.5 L BUN 32 H Creatinine 0.9 Estimated GFR/1.73 m2 >= 60.00 Glucose 78 Calcium 8.5 Magnesium Iron TIBC Transferrin % Sat Total Bilirubin 0.7 AST 23 ALT 17 Alkaline Phosphatase 111 Troponin I C-Reactive Protein NT-Pro-B Natriuret Pep 1297 H Total Protein 6.5 Albumin 2.8 L Vitamin B12 Folate TSH COVID-19 Source SARS-CoV-2 (PCR) Pathology Consult Spec Patient ABO/Rh Antibody Screen Crossmatch 06/19/20 06/19/20 06/19/20 06:21 08:30 12:20 WBC RBC Hgb Cancelled 8.9 L Hct Cancelled 30.2 L MCV MCH MCHC RDW Plt Count MPV Immature Gran % Neutrophils % Lymphocytes % Monocytes % Eosinophils % Basophils % Nucleated RBC % Absolute Neutrophils Absolute Lymphocytes Absolute Monocytes Absolute Eosinophils Absolute Basophils RBC Morphology Polychromasia Hypochromasia Poikilocytosis Anisocytosis Microcytosis PT INR APTT VBG Lactate Sodium Potassium Chloride Carbon Dioxide Anion Gap BUN Creatinine Estimated GFR/1.73 m2 Glucose Calcium Magnesium 2.4 Iron TIBC Transferrin % Sat Total Bilirubin AST ALT Alkaline Phosphatase Troponin I 0.12 H* C-Reactive Protein NT-Pro-B Natriuret Pep Total Protein Albumin Vitamin B12 Folate TSH COVID-19 Source SARS-CoV-2 (PCR) Pathology Consult Spec Patient ABO/Rh Antibody Screen Crossmatch 06/19/20 12:20 WBC RBC Hgb Hct MCV MCH MCHC RDW Plt Count MPV Immature Gran % Neutrophils % Lymphocytes % Monocytes % Eosinophils % Basophils % Nucleated RBC % Absolute Neutrophils Absolute Lymphocytes Absolute Monocytes Absolute Eosinophils Absolute Basophils RBC Morphology Polychromasia Hypochromasia Poikilocytosis Anisocytosis Microcytosis PT INR APTT VBG Lactate Sodium Potassium Chloride Carbon Dioxide Anion Gap BUN Creatinine Estimated GFR/1.73 m2 Glucose Calcium Magnesium Iron TIBC Transferrin % Sat Total Bilirubin AST ALT Alkaline Phosphatase Troponin I 0.10 H* C-Reactive Protein NT-Pro-B Natriuret Pep Total Protein Albumin Vitamin B12 Folate TSH COVID-19 Source SARS-CoV-2 (PCR) Pathology Consult Spec Patient ABO/Rh Antibody Screen Crossmatch
[2020-06-19] MEDS: Normal Saline - Diluent 50 ML VIAL IV (18:10)
--- NOTE | 2020-06-19 18:34 | DI.VRAD_ITS ---
PROCEDURE INFORMATION: Exam: CT Angiography Chest With Contrast Exam date and time: 06/19/2020 6:02 PM Age: 69 years old Clinical indication: Screening exam; Other screening; Patient HX: Questionable pulmonary embolism seen on CT abd/pelvis TECHNIQUE: Imaging protocol: Computed tomographic angiography of the chest with contrast. 3D rendering (Not supervised by radiologist): MIP and/or 3D reconstructed images were created by the technologist. COMPARISON: CT CHEST PE CTA 04/23/2020 12:46 PM FINDINGS: Pulmonary arteries: The small volume of clot is seen within a segmental branch of the pulmonary artery supplying the left lower lobe. Aorta: The aorta demonstrates mild atherosclerotic calcification. Lungs: Linear densities are noted at the dependent aspect of the right lower lobe consistent with scarring versus subsegmental atelectasis. Pleural spaces: Unremarkable. No pneumothorax. No pleural effusion. Heart: Sternal wires are present consistent with CABG. Lymph nodes: Unremarkable. No enlarged lymph nodes. Diaphragm: There is elevation of the right hemidiaphragm. Bones/joints: Contiguous flowing ossification along the anterior aspect of multiple contiguous vertebrae consistent with diffuse idiopathic skeletal hyperostosis (DISH). Soft tissues: Unremarkable. IMPRESSION: 1. Pulmonary embolism to a segmental branch of the left lower lobe. The overall clot burden appears low. 2. Right basilar scarring versus subsegmental atelectasis which is likely related to the chronic elevation of the right hemidiaphragm. 3. Status post CABG. 4. Diffuse idiopathic skeletal hyperostosis (DISH). Dictated and Authenticated by: Neil Jovel MD. Ordering:ARMANDO Haro MD
[2020-06-19] MEDS: Folic Acid 1 MG TAB PO (20:52)
[2020-06-19] MEDS: Gabapentin 300 MG CAP 600 MG PO (20:53)
[2020-06-19] MEDS: Lovastatin 40 MG TAB PO (20:53)
[2020-06-19] MEDS: traZODone 50 MG TAB 100 MG PO (21:31)
[2020-06-19 21:37] LABS: HCT 29.2 % (40.0-50.0); HGB 8.6 g/dL (13.5-17.5)
[2020-06-20] VITALS (35 sets, daily range): BP systolic 73–117; BP diastolic 27–69; PULSE 68–89; RESP 9–23; TEMP 36.4–37.2; O2SAT 84–100
--- NOTE | 2020-06-20 | DI.RAD_ITS ---
EXAM: XR PORTABLE CHEST AP CLINICAL HISTORY: ?Pulmonary edema TECHNIQUE: 2D digital imaging was performed. COMPARISON: CT CT CHEST PE CTA from 06/19/2020 FINDINGS: MEDIASTINUM: Normal. HEART: Stable cardiac silhouette. PULMONARY VASCULATURE: Normal. LUNGS: Clear. PLEURAL SPACE: No pleural effusion or pneumothorax. BONE:Within normal limits for the patient's age. Sternal wires are in place. OTHER FINDINGS:Unchanged elevation of the right hemidiaphragm. Poor inspiratory effort. IMPRESSION: No acute pulmonary findings. DATA REPOSITORY: RADIATION DOSE DELIVERED:
[2020-06-20] MEDS: Insulin Aspart 300 UNITS/3 ML PEN SC ×2 (01:54→12:13)
[2020-06-20 06:37] LABS: HCT 28.8 % (40.0-50.0); HGB 8.3 g/dL (13.5-17.5)
[2020-06-20 06:48] LABS: ALT 18 U/L (16-63); AST 24 U/L (15-37); Albumin 2.8 g/dL (3.4-5.0); Alkaline Phosphatase 126 U/L (46-116); Anion Gap 4.7 mmol/L (3-11); BUN 19 mg/dL (7-18); Bilirubin, Total 0.7 mg/dL (0.2-1.0); CO2 31.3 mmol/L (21.0-32.0); CREATININE 0.9 mg/dL (0.70-1.30); Calcium 8.5 mg/dL (8.5-10.1); Chloride 105 mmol/L (98-107); Glucose 125 mg/dL (74-106); Sodium 141 mmol/L (136-145); Total Protein 6.6 g/dL (6.4-8.2)
[2020-06-20 07:06] LABS: D-Dimer 1271 ng/mlFEU (<500)
--- NOTE | 2020-06-20 08:45 | W.PM.PROGNOT ---
Subjective Subjective Interval history since last seen: Slept well. BBB - R. HR 88, 98/48. Not actively bleeding. On protonix drip. Will get 2 units pRBCs. Sleep apnea overnight - down to 76% on RA. 2L overnight. On O2 now. Refuses to be turned. Wound care consult is pending. Objective Last Vital Signs Temp 37.1 C 06/20/20 04:09 Pulse 79 06/20/20 08:00 Resp 10 L 06/20/20 08:00 BP 98/48 L 06/20/20 08:00 Pulse Ox 99 06/20/20 08:00 Laboratory Results - last 24 hr 06/18/20 06/18/20 06/19/20 12:15 17:45 12:20 Hgb 8.9 L Hct 30.2 L D-Dimer Sodium Potassium Chloride Carbon Dioxide Anion Gap BUN Creatinine Estimated GFR/1.73 m2 Glucose Calcium Total Bilirubin AST ALT Alkaline Phosphatase Troponin I Total Protein Albumin Pathology Consult Spec Crossmatch See Detail 06/19/20 06/19/20 06/20/20 12:20 21:30 06:05 Hgb 8.6 L Hct 29.2 L D-Dimer Sodium 141 Potassium 4.0 Chloride 105 Carbon Dioxide 31.3 Anion Gap 4.7 BUN 19 H D Creatinine 0.9 Estimated GFR/1.73 m2 >= 60.00 Glucose 125 H Calcium 8.5 Total Bilirubin 0.7 AST 24 ALT 18 Alkaline Phosphatase 126 H Troponin I 0.10 H* Total Protein 6.6 Albumin 2.8 L Pathology Consult Spec Crossmatch 06/20/20 06/20/20 06:05 06:05 Hgb 8.3 L Hct 28.8 L D-Dimer 1271 H Sodium Potassium Chloride Carbon Dioxide Anion Gap BUN Creatinine Estimated GFR/1.73 m2 Glucose Calcium Total Bilirubin AST ALT Alkaline Phosphatase Troponin I Total Protein Albumin Pathology Consult Spec Crossmatch
--- NOTE | 2020-06-20 08:51 | DI.US_ITS ---
EXAM: US EXTREMITY VENOUS BI CLINICAL HISTORY: Acute PE, concern for DVT. TECHNIQUE: Bilateral lower extremity venous ultrasound performed using grayscale, color-flow, and sp ectral Doppler analysis. COMPARISON: No exams were available for comparison FINDINGS: The right common femoral, femoral and popliteal veins demonstrate normal compressibility, augmentatio n, and color Doppler. The right posterior tibial veins are patent. The right saphenofemoral junctions are unremarkable. There is no evidence of a Shields's cyst. The soft tissues are unremarkable. There is thrombus seen in the left superficial femoral vein, popliteal vein, posterior tibialis veins and left profundus. The left saphenofemoral junction is patent without thrombus. There is no evide nce of a Shields cyst. The soft tissues are unremarkable. IMPRESSION: Right: Negative for DVT Left: DVT extending from the left superficial femoral vein into the popliteal and posterior tibialis veins with involvement of the left profundus. DATA REPOSITORY:
[2020-06-20] MEDS: Sucralfate 1 GM TAB PO ×2 (09:20→10:58)
[2020-06-20] MEDS: Gabapentin 300 MG CAP 600 MG PO (09:20)
[2020-06-20] MEDS: Folic Acid 1 MG TAB PO (09:22)
[2020-06-20] MEDS: Metoprolol 25 MG TAB PO (09:23)
[2020-06-20 09:27] LABS: NT-proBNP 1746 pg/mL (<300)
--- NOTE | 2020-06-20 09:30 | DI.VRAD_ITS ---
PROCEDURE INFORMATION: Exam: XR Chest Exam date and time: 06/20/2020 9:20 AM Age: 69 years old Clinical indication: Wheezing TECHNIQUE: Imaging protocol: XR of the chest Views: 1 view. COMPARISON: CT CHEST PE CTA 06/19/2020 5:51 PM FINDINGS: Tubes, catheters and devices: Overlying EKG wires Lungs: No focal consolidation.. Pleural spaces: Unremarkable. No pleural effusion. No pneumothorax. Heart/Mediastinum: Stable cardiac silhouette Diaphragm: Elevated hemidiaphragms bilaterally. Bones/joints: Stable osseous structures IMPRESSION: No focal consolidation.. Dictated and Authenticated by: Frandy Pickett MD. Ordering:KRYSTEN Woodward MD
--- NOTE | 2020-06-20 10:47 | DI.VRAD_ITS ---
Addendum created by Frandy Pickett MD on 06/20/2020 10:51:46 AM EST: THIS REPORT CONTAINS FINDINGS THAT MAY BE CRITICAL TO PATIENT CARE. The findings were verbally communicated via telephone conference with Crissy Montoya at 10:51 AM EST on 06/20/2020. The findings were acknowledged and understood. Initial report created on 06/20/2020 10:47:02 AM EST: PROCEDURE INFORMATION: Exam: US Duplex Lower Extremity Veins, Bilateral Exam date and time: 06/20/2020 10:31 AM Age: 69 years old Clinical indication: Pain; Chest; Patient HX: HX of a pe, R/O dvt TECHNIQUE: Imaging protocol: Real-time duplex ultrasound of the extremities with 2-D mccloud scale, color Doppler flow and spectral waveform analysis with image documentation. Complete exam focused on the bilateral lower extremity veins. COMPARISON: No relevant prior studies available. FINDINGS: Right deep veins: Unremarkable. The common femoral, femoral, proximal profunda femoral and popliteal veins are patent without thrombus. Normal Doppler waveforms. Normal compressibility and/or augmentation response. Right superficial veins: Saphenofemoral junction is patent without thrombus. Left deep veins: Deep venous thrombosis in the left superficial femoral vein, popliteal vein, and posterior tibial vein. There is deep venous thrombosis in the left profundus. Left superficial veins: Saphenofemoral junction is patent without thrombus. Soft tissues: Unremarkable. IMPRESSION: Deep venous thrombosis in the left superficial femoral vein, popliteal vein, and posterior tibial vein. There is deep venous thrombosis in the left profundus. Dictated and Authenticated by: Frandy Pickett MD. Ordering:KRYSTEN Woodward MD
--- NOTE | 2020-06-20 10:51 | CMPROGNOTE_ITS ---
- If Service Date Differs Date of service: 06/20/20 Time of Service: 10:51 Care Management Progress Note S/O: Osmar required transfer today, as he needed an IVC filter placement, which could not be accommodated at [facility]. The provider [facility] but [facility] also [facility]. Osmar was transferred to [facility] via [facility] this afternoon. CM called his , Stacy, to provide an update on his transfer, and left a voicemail. CM will continue to follow. A: Osmar is a 69 year old male admitted to [facility] on 06/18/20 with Abdominal pain, GI bleed, severe anemia. P: Osmar was transferred to [facility] today for an IVC filter placement. He was transported via [facility] ambulance. CM called his and left a voicemail with an update. CM will continue to support patient, family and discharge plan of care.
[2020-06-20] MEDS: Acetaminophen 325 MG TAB 650 MG PO (10:58)
[2020-06-20] MEDS: diphenhydrAMINE 25 MG CAP PO (10:58)
[2020-06-20] MEDS: PANTOPRAZOLE 80 MG in Normal Saline 100 ML 10 MG IV (10:59)
[2020-06-20] MEDS: Normal Saline 1,000 ML 125 ML IV (10:59)
--- NOTE | 2020-06-20 11:22 | WOUNDCONS ---
- If Service Date Differs Date of service: 06/20/20 Time of Service: 11:22 Wound Initial Evaluation Narrative: 06/20/20 1122 Received consult for wounds on right malleolus, right scapula and sacrum. Spoke with patient and he consents to photographs and wound consult. Pt states that he sees a doctor at [facility] for his ankle because it was infected. He scraped it up, he is a great doctor. Patient has faint palpable pedal pulses bilaterally, with dp and pt pulses bilaterally by doppler. Patient had bilateral lower extremity doppler today which showed a DVT in left lower extremity, none in the right. Patient was admitted for GI bleed and is currently ordered to receive blood for falling Hgb. Patient able to recall name and when asked. pt reports pain with movement of BLE, medicated prior to consult. Heels on bilat feet blanchable and intact although the left one is pink. Right malleolus wound measures 2.5 cm x 2 cm x less than 0.1 cm. The wound bed is pink and has some serosanguinous drainage. The wound margins are pink, no increased warmth noted. The sacral area measures approximately 9.5 cm x a5 cm x less than 0.1 cm. The area is purplish, blanchable and has several scattered small open areas with sanguinous drainage noted. Pt incontinent of formed stool, no diarrhea noted. The right shoulder blade wound was reported as a chronic wound on right shoulder with thick white/yellow drainage noted. Wound measures 2.4 cm x 2.6 cm x 0.3 cm. Surrounding wound is pink, no increase in warmth noted. - Wound Right Malleolus Wound Type: Other, Partial Thickness Wound General Appearance: Draining, Unapproximated Wound Bed Greatest Portion: Red (Granulation) Wound Surrounding Tissue Appearance: [place] Wound Length: 2.5 cm Wound Width: 2 cm Wound Depth: 0.1 cm Wound Drainage Amount: Minimal Wound Drainage Odor: None/Absent Wound Drainage Description: Sero Sanguineous Sacral Wound Type: Other Wound General Appearance: Bleeding Wound Length: 9.5 cm Wound Width: 15 cm Wound Depth: 0.1 cm Wound Drainage Odor: None/Absent Wound Drainage Description: Bloody Right scapula Wound Type: Full Thickness Wound General Appearance: Draining, Unapproximated Wound Bed Greatest Portion: Red (Granulation) Wound Bed Lesser Portion: Yellow (Slough) Wound Length: 2.4 cm Wound Width: 2.6 cm Wound Depth: 0.3 cm - Circulation, Sensation, Motion Peripheral Pulse Strength: Weak Capillary Refill: Less than 3 seconds Sensation Description: Pain Skin Temperature: Warm Skin Color: Pale Wounds summarized in narrative. ERICH's not performed d/t DVT and pt's pain level on ble. - Recomendation Recomendation:: Recommend for right malleolus- Cleanse with ns, pat dry, apply mepilex with border. Change q 3 days and PRN. Sacrum- Cleanse with anasept, let dwell two minutes, pat dry, apply mepilex sacral. Change q 2 days and PRN. Right sacral- Consult surgical ?sebacous cyst. Physcian/Nurse Practioner Notified: Yes (Dr. Wilhelm/ Dr. Thompson) Referrals: Surgeon
--- NOTE | 2020-06-20 12:54 | PGE_ITS ---
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 (6) Esophagitis determined by endoscopy: Status: Acute (7) Gastritis/duodenitis: Status: Acute (8) Erosive gastritis: Status: Acute (9) Celiac artery atherosclerosis: Status: Acute (10) Superior mesenteric artery atherosclerosis: Status: Acute (11) Stenosis of inferior mesenteric artery: Status: Acute (12) Cystic mass of pancreas: Status: Acute (13) Pressure ulcer: Status: Acute Qualifiers: Pressure injury location: upper back Pressure injury stage: unspecified pressure injury stage Laterality: right Qualified Code(s): L89.119 - Pressure ulcer of right upper back, unspecified stage (14) Type 2 myocardial infarction due to anemia: Status: Acute (15) Iron deficiency anemia: Status: Acute Qualifiers: Iron deficiency anemia type: chronic blood loss Qualified Code(s): D50.0 - Iron deficiency anemia secondary to blood loss (chronic) (16) Right foot ulcer: Status: Acute (17) Heart failure with preserved ejection fraction: Status: Chronic (18) PFO (patent foramen ovale): Status: Chronic (19) Hyperlipidemia: Status: Chronic Qualifiers: Hyperlipidemia type: unspecified Qualified Code(s): E78.5 - Hyperlipidemia, unspecified (20) Coronary artery disease: Status: Chronic Qualifiers: Coronary Disease-Associated Artery/Lesion type: [place] artery [place] vs. transplanted heart: [place] heart Associated angina: without angina Qualified Code(s): I25.10 - Atherosclerotic heart disease of [place] coronary artery without angina pectoris (21) Diabetes: Status: Chronic Qualifiers: Diabetes mellitus type: type 2 Diabetes mellitus exterminator insulin use: with correction use Diabetes mellitus complication status: with circulatory complication Diabetes mellitus complication detail: with other circulatory complications Qualified Code(s): E11.59 - Type 2 diabetes mellitus with other circulatory complications; Z79.4 - senior living (current) use of insulin (22) Hypertension: Status: Chronic Qualifiers: Hypertension type: essential hypertension Qualified Code(s): I10 - Essential (primary) hypertension (23) Sebaceous cyst: Status: Acute (24) Gastric hemorrhage due to erosive gastritis: Status: Acute Assessment and plan: Patient received 2 units of blood today. Because of his high risk of re-bleeding from his stomach versus his DVT and PE, he was excepted in transfer to [facility] 60 minutes was spent with the patient today discussing the case with Dr. Briones and deciding on his anticoagulation status. Reviewing his chest CTs his labs from today including CBC, comp, INR and reviewing his wounds and doing charting Subjective Subjective Interval history since last seen: Patient states that he currently does not have any abdominal pain. His nurse said he did have abdominal pain earlier this morning. He only drank 2 Ensure shakes because he had no appetite. He has no significant pain on palpation. He has less distention. He has good bowel sounds. He has no signs of peritonitis or acute abdomen. He has not had a bowel movement since his been in the hospital. He has a diabetic foot ulcer that has been there for quite some time. He also has a compression ulcer on his sacral region that he came into the hospital with. See documentation from the WOC RN. He also has a open wound on his right posterior shoulder which appears to be a sebaceous cyst. Patient received his Plavix on 06/18. He has not had a dose since then. He had an EGD on 06/19 which did show severe erosive/hemorrhagic esophagitis/gastritis/duodenitis. He had no problems with anesthesia-propofol only. He has severe atherosclerosis and luminal compromise of his : Celiac axis, SELIN, SMA. His severe calcifications of the majority of his arteries noted on CT scan. Incidental finding of possible PE was noted on CT scan of the abdomen pelvis. CT scan of the chest was obtained which did show a PE. Anticoagulation was held for 12 hours because of his acute hemorrhagic gastritis. Dopplers were obtained today which does show quite extensive DVT. He is a full code and and the patient still want everything done despite the disability he suffered from his acute stroke after his CABG.. The rehab team from [facility] he made no progress. Exam HENMT Other: No jaundice or thrush. He has ecchymosis on the right posterior side of his tongue. Dentition is fair with no abscesses. He has significant tooth loss. He has the post in place for dental implants No JVD Chest Other: Postsurgical changes noted from his recent CABG. No open wounds Cardio Rate: regular rate Rhythm: regular rhythm GI Palpation: soft, nontender and No ascites Auscultation: normal bowel sounds Rectal Exam: heme positive stool (When he was in the ER. No bowel movement since admission) Skin Wounds: wounds noted (see WOC notes) Hair: general thinning and male pattern alopecia Other: Lower extremity edema left greater than right. Please seeWOC notes for measurements and bouts of wounds. Neuro General: patient alert, patient awake and oriented Patient Orientation: Person Speech: expressive aphasia Gait: other (left sided paralusis ) Objective Last Vital Signs Temp 36.4 C L 06/20/20 10:44 Pulse 68 06/20/20 11:00 Resp 20 06/20/20 11:00 BP 103/51 L 06/20/20 11:00 Pulse Ox 95 06/20/20 11:00 Laboratory Results - last 24 hr 06/18/20 06/18/20 06/19/20 12:15 17:45 12:20 Hgb Hct D-Dimer Sodium Potassium Chloride Carbon Dioxide Anion Gap BUN Creatinine Estimated GFR/1.73 m2 Glucose Calcium Total Bilirubin AST ALT Alkaline Phosphatase Troponin I 0.10 H* NT-Pro-B Natriuret Pep Total Protein Albumin Pathology Consult Spec Patient ABO/Rh O Negative Antibody Screen Negative Crossmatch See Detail 06/19/20 06/20/20 06/20/20 21:30 06:05 06:05 Hgb 8.6 L 8.3 L Hct 29.2 L 28.8 L D-Dimer Sodium 141 Potassium 4.0 Chloride 105 Carbon Dioxide 31.3 Anion Gap 4.7 BUN 19 H D Creatinine 0.9 Estimated GFR/1.73 m2 >= 60.00 Glucose 125 H Calcium 8.5 Total Bilirubin 0.7 AST 24 ALT 18 Alkaline Phosphatase 126 H Troponin I NT-Pro-B Natriuret Pep 1746 H Total Protein 6.6 Albumin 2.8 L Pathology Consult Spec Patient ABO/Rh Antibody Screen Crossmatch 06/20/20 06:05 Hgb Hct D-Dimer 1271 H Sodium Potassium Chloride Carbon Dioxide Anion Gap BUN Creatinine Estimated GFR/1.73 m2 Glucose Calcium Total Bilirubin AST ALT Alkaline Phosphatase Troponin I NT-Pro-B Natriuret Pep Total Protein Albumin Pathology Consult Spec Patient ABO/Rh Antibody Screen Crossmatch
--- NOTE | 2020-06-20 13:15 | RT.EKG_ITS ---
APPROVED REPORT Exam: Resting ECG Patient Location: I HR:75 bpm ECG Measurements Heart Rate [address] 355 P 0 QRSd 156 QRS -85 QT 439 T 61 QTc 490 Conclusion Sinus rhythm...normal P axis, V-rate 60- [address] interval...CT >220, V-rate 50- 90 Right bundle branch block...QRSd>120, terminal axis(90,270) Probable inferior infarct, recent...Q>25mS, ST>0.07mV, T neg, II-aVF
[2020-06-20] MEDS: Gabapentin 300 MG CAP PO (13:29)
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
[2020-06-20] MEDS: Furosemide 20 MG/2 ML VIAL IVP (15:25)
[2020-06-20] MEDS: Normal Saline Flush 10 ML SYR IVP (15:25)
[2020-06-20] MEDS: Lidocaine 1% Multi-Dose 50 ML VIAL (15:26)
--- NOTE | 2020-06-20 15:38 | W.PM.OP ---
Date of service: 06/20/20 Time of Service: 15:38 Operative Note Operative Note DATE OF PROCEDURE: 06/19/20 PRE-OP DIAGNOSIS: open draining wound right posterior shoulder POST-OP DIAGNOSIS: other (Chronically infected sebaceous cyst) PROCEDURE: Excision of sebaceous cyst SURGEON: Cecy Thompson ANESTHESIA TYPE: Local By Surgeon Refer to Anesthesia Record ESTIMATED BLOOD LOSS: 3 PATHOLOGY: none sent COMPLICATIONS: None Patient was transported to: ICU Patient's condition: stable Procedure Description: I was asked to see the patient by SPENCER Yao, RN. Patient has a chronic open draining wound on his posterior right shoulder. It is about 1 x 1 inch. It has been there for quite some time. It appears to be a chronic sebaceous cyst. Patient verbally states that he would like it removed. He has no reaction to local anesthetics. He is on Plavix but did not receive it for 48 hours. The wound is already opening chronically draining. It is cleaned with Betadine. It is done under sterile conditions. the cyst is infiltrated with 20 cc of 1% lidocaine plain. It is excised sharply using a scalpel. All the cyst cavity is removed. Pressure is held. There is no significant bleeding noted. The entirety of the cyst is 2 x 2 cm. The entirety of the cavity is 4 x 4 cm. The opening is 2 x 2 cm it is packed with a 4 x 4 and sterile compression dressing is applied. He does not require antibiotic ask for this.
--- NOTE | 2020-06-20 18:56 | NUR.NOTE ---
Nursing Note: 1640 This nurse updated patient's regarding her husbands transfer to [facility] and patient status at time of discharge.
[2020-06-22 09:10] LABS: Homocysteine 14.7 umol/L (5.0-13.9)
[2020-06-24 12:14] LABS: Methylmalonic Acid 0.48 nmol/mL (<=0.40)
[2020-06-24 16:45] LABS: Thiamine (Vitamin B1), WB 84 nmol/L (70-180)
== END 2020-06-20 15:52 | disposition short-term general hospital (02) | DRG 377 ==
LOC: ER 17:49 → ICU 18:21
PROVIDERS: Family Medicine; Surgery; Admitting Provider Internal Medicine; Emergency Provider Student in an Organized Health Care Education/Training Program; PCP Physician Assistant Medical; Visit Provider Internal Medicine
PROC: 0DJ68ZZ Inspection of Stomach, Via Natural or Artificial Opening Endoscopic (ICD-10-PCS; CPT 43235; principal; 2020-06-19 12:30)
DX: K29.61 Other gastritis with bleeding (principal); I21.A1 Myocardial infarction type 2; I26.99 Other pulmonary embolism without acute cor pulmonale; D62 Acute posthemorrhagic anemia; Q21.1 Atrial septal defect; I69.354 Hemiplegia and hemiparesis following cerebral infarction affecting left non-dominant side; I50.30 Unspecified diastolic (congestive) heart failure; K55.1 Chronic vascular disorders of intestine; I82.412 Acute embolism and thrombosis of left femoral vein; I82.432 Acute embolism and thrombosis of left popliteal vein; I82.442 Acute embolism and thrombosis of left tibial vein; I82.4Z2 Acute embolism and thrombosis of unspecified deep veins of left distal lower extremity; L72.3 Sebaceous cyst; I25.10 Atherosclerotic heart disease of native coronary artery without angina pectoris; D50.9 Iron deficiency anemia, unspecified; E78.5 Hyperlipidemia, unspecified; Z20.822 Contact with and (suspected) exposure to COVID-19; I70.8 Atherosclerosis of other arteries; Z95.1 Presence of aortocoronary bypass graft; Z79.01 Long term (current) use of anticoagulants; I10 Essential (primary) hypertension; Z86.718 Personal history of other venous thrombosis and embolism; K29.80 Duodenitis without bleeding; E11.59 Type 2 diabetes mellitus with other circulatory complications; Z79.4 Long term (current) use of insulin; L89.112 Pressure ulcer of right upper back, stage 2; L89.159 Pressure ulcer of sacral region, unspecified stage; L89.519 Pressure ulcer of right ankle, unspecified stage; Z95.5 Presence of coronary angioplasty implant and graft; K20.90 Esophagitis, unspecified without bleeding
CPT/HCPCS: 43235; 11402; 36415; 36430; 71275; 80048; 80053; 80186; 83090; 83690; 85027; 86850; 86900; 86901; 86920; 87081; 93005; 93306; 96361; 96374; 99220; 99222; 99232; 99233; 99254; 99291; 71045; 74177; 76700; 81003; 81015; 82607; 82746; 83540; 83550; 83605; 83735; 83880; 84425; 84443; 84484; 85014; 85018; 85025; 85379; 85610; 85730; 86140; 93010; 93970; 99223; J1756; J1941; J2001; J2270; J2704; J3475; J3480; J3490; P9016

== ENCOUNTER 2020-09-01 22:11 | Outpatient (REF) | payer MEDICARE, SELFPAY ==
[2020-09-02 20:30] LABS: Campylobacter PCR Negative (Negative); Salmonella PCR Negative (Negative); Shiga Toxin PCR Negative (Negative); Shigella/Enteroinvasive Ecoli Negative (Negative)
== END 2020-09-01 22:12 | disposition home or self-care (01) ==
LOC: LBN 22:11
PROVIDERS: PCP Physician Assistant Medical; Visit Provider Physician Assistant Medical
DX: R19.7 Diarrhea, unspecified (principal); K92.2 Gastrointestinal hemorrhage, unspecified
CPT/HCPCS: 87493; 87505; 82274; 83630

== ENCOUNTER 2020-12-26 15:26 | Outpatient (REF) | payer OTHER, SELFPAY ==
[2020-12-26 17:12] LABS: *AMPHETAMINES SCREEN URINE Negative (Negative); *BARBITURATES SCREEN URINE Negative (Negative); *BENZODIAZEPINES SCREEN URINE Negative (Negative); Cannabinoids THC Positive (Negative); Cocaine Screen,Urine Negative (Negative); METHADONE URINE SCREEN Negative (Negative); OPIATES URINE SCREEN Negative (Negative)
[2020-12-26 17:13] LABS: COMMENT (LAB VIEW ONLY) 47.84 mg/dL; Microalb ug/mg Crea 87.6 ug/mg Cr
[2020-12-26 17:14] LABS: Tricyclic Antidepressants Negative (Negative)
[2020-12-28 09:02] LABS: HBs Antibody, Quant <3.1 mIU/mL (See Note); Hepatitis B Surface Ab Negative (See Note)
[2020-12-28 09:11] LABS: Hepatitis B Surface Ag Negative (Negative)
[2020-12-28 09:27] LABS: Hepatitis C Ab w Rflx HCV PCR Negative (Negative)
[2020-12-28 09:50] LABS: Hep B Core Antibody Negative (Negative)
== END 2020-12-26 15:27 | disposition home or self-care (01) ==
LOC: LBN 15:26
PROVIDERS: PCP Physician Assistant Medical; Visit Provider Internal Medicine Geriatric Medicine
DX: K74.69 Other cirrhosis of liver (principal); C7A.010 Malignant carcinoid tumor of the duodenum
CPT/HCPCS: 80307; 86704; 86706; 86803; 87340; 82043; 82570

== ENCOUNTER 2021-04-01 13:56 | Outpatient (CLI) | payer OTHER, SELFPAY ==
[2021-04-03 01:58] LABS: COVID-19 RT-PCR UVMMC Result Negative (Negative)
== END 2021-04-01 13:57 | disposition home or self-care (01) ==
LOC: LBO 04-02 13:56 → LBN 04-02 13:56
PROVIDERS: PCP Physician Assistant Medical; Visit Provider Physician Assistant Medical
DX: Z20.822 Contact with and (suspected) exposure to COVID-19 (principal)
CPT/HCPCS: U0003